=== PATIENT | female | born 1935 | race Caucasian/White ===

== ENCOUNTER → 2023-11-01 23:59 | Outpatient (BNV) | payer MEDICARE, SELFPAY ==
--- NOTE | 2023-11-01 11:24 | MHC.OFFVIS ---
Intake Intake Visit Reasons: Remote HF Monitoring- [employer] Allergies aspirin Allergy (Intermediate, Verified 09/01/23 11:00) Hives clindamycin Allergy (Intermediate, Verified 09/01/23 11:00) Diarrhea dipyridamole Allergy (Intermediate, Verified 09/01/23 11:00) Diarrhea doxycycline Allergy (Intermediate, Verified 09/01/23 11:00) Diarrhea enalapril Allergy (Intermediate, Verified 09/01/23 11:00) dry cough erythromycin base Allergy (Intermediate, Verified 09/01/23 11:00) Nausea, puffy face lansoprazole [Prevacid] Allergy (Intermediate, Verified 09/01/23 11:00) pruritus metronidazole Allergy (Intermediate, Verified 09/01/23 11:00) Diarrhea Penicillins [PENICILLINS] Allergy (Intermediate, Verified 09/01/23 11:00) hives Sulfa (Sulfonamide Antibiotics) [SULFA (SULFONAMIDE ANTIBIOTICS)] Allergy (Intermediate, Verified 09/01/23 11:00) Hives ticlopidine [TICLOPIDINE] Allergy (Intermediate, Verified 09/01/23 11:00) hives tramadol [TRAMADOL] Allergy (Intermediate, Verified 09/01/23 11:00) HIVES loratadine [LORATADINE] Allergy (Unknown, Verified 09/01/23 11:00) UNKNOWN levofloxacin Adverse Reaction (Intermediate, Verified 09/01/23 11:00) Diarrhea lisinopril [Zestril] Adverse Reaction (Intermediate, Verified 09/01/23 11:00) dry cough, chest pressure PFS Medical History Joint pain Hand weakness Neuropathy Medicare annual wellness visit, initial Biventricular cardiac pacemaker in situ History of pacemaker Cardiac pacemaker in situ Heart failure with reduced ejection fraction Cardiomyopathy Hearing loss Osteoporosis Glaucoma GERD (gastroesophageal reflux disease) Paroxysmal atrial fibrillation Essential hypertension Pure hypercholesterolemia Surgical History Trigger finger, right middle finger History of removal of cyst History of bone graft Enchondroma of humerus History of basal cell carcinoma (BCC) excision History of lumbar laminectomy History of total ankle replacement History of cataract surgery History of breast biopsy S/P HAILEY (total abdominal hysterectomy) History of ankle surgery History of cholecystectomy History of appendectomy History of tonsillectomy Family History Father Myocardial infarction Mother No problems noted. Paternal Aunt Colon cancer Breast cancer Sister Myocardial infarction Social History Housing: Apartment Alcohol intake: never Patient Tobacco Use Status: Never used Tobacco e-Cigarette/Vaping Use: Never Used Second Hand Smoke Exposure: No service: No Current occupational status: retired Cognitive needs: Yes Hearing needs: Yes Vision needs: Yes Office Procedures Cardiac Device Check Cardiac Device Check Details: Remote heart failure report generated 11/01/2023. Heart failure parameters are stable [id number] Cardiac Device Interrogation, cardio physiologic monitor Procedure code (CPT) selection complete Assessment & Plan Assessment & Plan (1) Biventricular cardiac pacemaker in situ: Code(s): Z95.0 - Presence of cardiac pacemaker Plan See above Coding Level of Care Code Procedure Only Diagnoses Biventricular cardiac pacemaker in situ Z95.0 CPT Codes Cardiac Device Check - Cardiac Device 15: [id number] Cardiac Device Interrogation, cardio physiologic monitor ([id number])
== END ==
PROVIDERS: PCP Internal Medicine; Visit Provider Internal Medicine Cardiovascular Disease
DX: I50.20 Unspecified systolic (congestive) heart failure (principal); Z95.0 Presence of cardiac pacemaker
CPT/HCPCS: 93297

== ENCOUNTER 2023-11-10 11:02 | Outpatient (REF) | payer MEDICARE, SELFPAY ==
--- NOTE | ~2023-11-10 | CT_ITS ---
CT HEAD WITHOUT IV CONTRAST CT TEMPORAL BONES WITHOUT IV CONTRAST INDICATION: Disorders of the right acoustic nerve. COMPARISON: Head CT 07/27/2018. TECHNIQUE: Multidetector CT acquisitions of the head and temporal bones obtained without IV contrast. This CT examination was performed using dose optimization techniques as appropriate, variously including the following: *Automated exposure control *Adjustment of mA and/or kV according to patient size (this includes techniques or standardized protocols for targeted exams where dose is matched to indication/reason for exam; i.e. extremities or head) *Use of iterative reconstruction technique FINDINGS: CT TEMPORAL BONES: The right mastoid air cells and the right middle ear cavity are clear. The right ossicular chain is intact. There is no otospongiosis. The inner ear structures including the cochlea, vestibule, and semicircular canals are normal. Semicircular canals remain will cover with bone. The vestibular aqueduct is not enlarged. Right petrous apex is pneumatized and clear. Internal carotid artery remains well covered with bone and the sigmoid plate is intact. The left mastoid air cells and the left middle ear cavity are clear. The left ossicular chain is intact. There is no otospongiosis. Inner ear structures including the cochlea, vestibule, and semicircular canals are normal. Semicircular canals remain will cover with bone. The vestibular aqueduct is not enlarged. The left petrous apex is pneumatized and well aerated. The internal carotid artery remains well covered with bone and the sigmoid plate is intact. 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 There is no intracranial hemorrhage, hydrocephalus, extra-axial surface collection, midline shift, or other herniation pattern. Hernandez to white matter differentiation is diffusely maintained without evidence of an evolved acute territorial infarct. The basilar cisterns are preserved. No significant soft tissue abnormality. No acute osseous abnormality. Heterogeneous density near complete opacification of the left sphenoid sinus including portions of the left sphenoid sinus pneumatized into the left sphenoid wing and basisphenoid of the clivus. The heterogeneity within the sinuses unusual and an underlying mass lesion cannot be excluded. No bony erosive changes. Advanced degenerative changes involving the atlantodental interval. CT/CT internal auditory canals BI IMPRESSION: - Heterogeneous density near complete opacification of the left sphenoid sinus including portions of the left sphenoid sinus pneumatized into the left sphenoid wing and basisphenoid of the clivus. The heterogeneity within the sinuses unusual and an underlying mass lesion cannot be excluded. No bony erosive changes. Findings have progressed when compared to the prior head CT dated 07/27/2018. 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 - Unremarkable CT of the temporal bones.
== END 2023-11-10 11:03 | disposition home or self-care (01) ==
LOC: HO.CT 11:02
PROVIDERS: Visit Provider Otolaryngology
DX: H93.3X1 Disorders of right acoustic nerve (principal)
CPT/HCPCS: 70450; 70480

== ENCOUNTER 2023-11-16 12:20 | Outpatient (REF) | payer MEDICARE, SELFPAY ==
[2023-11-16 12:42] LABS: MANUAL DIFF FLAG NO
[2023-11-16 13:34] LABS: Appearance Urine Clear; Color Urine Yellow; Glucose Urine UA Negative (Negative); Leukocyte Esterase Urine Negative (Negative); Nitrite Urine Negative (Negative); PH 6.5 (5.0-9.0); Specific Gravity - Urine 1.015 (1.005-1.025); Urine Blood Negative (Negative); Urine Ketones Negative (Negative); Urine Protein Negative (Neg-Trace)
[2023-11-16 13:38] LABS: Basophils Percent Auto 0.4 % (0-2); Eosinophils Absolute Auto 0.2 X10*3/uL (0.0-0.4); Eosinophils Percent Auto 2.6 % (0-4); Hematocrit 42.8 % (37.0-47.0); Imm Gran Abs Auto 0.02 X10*3/uL (0.00-0.03); Imm Gran Pct Auto 0.4 % (0.0-0.4); Lymphocytes Absolute Auto 1.5 X10*3/uL (1.2-4.9); Lymphocytes Percent Auto 26.4 % (20-40); Mean Corpuscular HGB Conc 32.7 g/dl (31.0-35.0); Mean Corpuscular Hemoglobin 30.8 pg (27.0-33.0); Mean Corpuscular Volume 94.1 fL (80.0-98.0); Mean Platelet Volume 10.7 fL (9.4-12.3); Monocytes Absolute Auto 0.5 X10*3/uL (0.1-1.2); Monocytes Percent Auto 8.8 % (2-11); Neutrophils Absolute Auto 3.5 x10*3/uL (2.0-8.3); Neutrophils Percent Auto 61.4 % (45-73); Platelet Count 161 X10*3/uL (160-400); Red Blood Count 4.55 X10*6/uL (4.20-5.50); Red Cell Distribution Width 13.7 % (11.0-16.0); White Blood Count 5.7 X10*3/uL (4.8-10.8)
[2023-11-16 13:48] LABS: Estimated Average Glucose 105 mg/dL; Hemoglobin A1c % 5.3 % (<6.0)
[2023-11-16 14:06] LABS: Iron 87 mcg/dL (30-160); Percent Iron Saturation 31 % (15-50); Total Iron Binding Capacity 280 mcg/dL (228-428); Unsaturated Iron Binding 193 ug/dL
[2023-11-20 10:54] LABS: VITAMIN D (1,25 OH) D3 29 pg/mL; Vit D (1,25-Dihydroxy) Total 29 pg/mL (18-72); Vitamin D (1,25 OH) D2 <8 pg/mL
== END 2023-11-16 12:21 | disposition home or self-care (01) ==
LOC: HO.LAB 12:20
PROVIDERS: PCP Internal Medicine; Visit Provider Internal Medicine Nephrology
DX: I13.0 Hypertensive heart and chronic kidney disease with heart failure and stage 1 through stage 4 chronic kidney disease, or unspecified chronic kidney disease (principal); N18.32 Chronic kidney disease, stage 3b; I50.9 Heart failure, unspecified; N25.0 Renal osteodystrophy
CPT/HCPCS: 36415; 81003; 82652; 83036; 83540; 85025; 87086

== ENCOUNTER 2023-12-07 10:47 | Outpatient (AMB) | payer MEDICARE, SELFPAY ==
[2023-12-07 10:51] VITALS: BP 108/64; PULSE 70; TEMP 35.9; O2SAT 96; BMI 28.0
--- NOTE | 2023-12-07 10:51 | MHC.OFFVIS ---
Intake Vital Signs 12/07/23 10:51 Height 5 ft 2.52 in Weight 155 lb 6.814 oz BMI 28.0 BP 108/64 Blood Pressure Location Rt brachial Position Sitting Pulse 70 Pulse Source Pulse Oximeter Temp 96.6 F L Temp Source Skin Pulse Oximetry (%) 96 Oxygen Delivery Method Room Air Intake Visit Reasons: Joint Pain Intake Note: New pt presents today for consult. 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 Accompanied by: Self / Same As Patient Allergies aspirin Allergy (Intermediate, Verified 12/07/23 10:56) Hives clindamycin Allergy (Intermediate, Verified 12/07/23 10:56) Diarrhea dipyridamole Allergy (Intermediate, Verified 12/07/23 10:56) Diarrhea doxycycline Allergy (Intermediate, Verified 12/07/23 10:56) Diarrhea enalapril Allergy (Intermediate, Verified 12/07/23 10:56) dry cough erythromycin base Allergy (Intermediate, Verified 12/07/23 10:56) Nausea, puffy face lansoprazole [Prevacid] Allergy (Intermediate, Verified 12/07/23 10:56) pruritus metronidazole Allergy (Intermediate, Verified 12/07/23 10:56) Diarrhea Penicillins [PENICILLINS] Allergy (Intermediate, Verified 12/07/23 10:56) hives Sulfa (Sulfonamide Antibiotics) [SULFA (SULFONAMIDE ANTIBIOTICS)] Allergy (Intermediate, Verified 12/07/23 10:56) Hives ticlopidine [TICLOPIDINE] Allergy (Intermediate, Verified 12/07/23 10:56) hives tramadol [TRAMADOL] Allergy (Intermediate, Verified 12/07/23 10:56) HIVES loratadine [LORATADINE] Allergy (Unknown, Verified 12/07/23 10:56) UNKNOWN levofloxacin Adverse Reaction (Intermediate, Verified 12/07/23 10:56) Diarrhea lisinopril [Zestril] Adverse Reaction (Intermediate, Verified 12/07/23 10:56) dry cough, chest pressure Medication List - Last Reconciled 12/07/23 by Celine Beaver MD acetaminophen ER 650 mg PO .AFTER LUNCH alendronate 70 mg PO QWEEK amiodarone 100 mg (1/2 x 200 mg) PO DAILY 90 days apixaban (Eliquis) 5 mg PO BID 90 days atenolol 50 mg PO DAILY calcium carbonate-vit D3-min 600 mg calcium- 400 unit 1 tab PO BID dicyclomine 20 mg PO TID 90 days fexofenadine (Eneida Allergy) 180 mg PO DAILY PRN latanoprost 0.005% drps ophthalmic (eye) levocetirizine 5 mg PO DAILY losartan 50 mg PO DAILY magnesium oxide 400 mg PO DAILY rosuvastatin 10 mg PO DAILY 90 days sacubitril-valsartan 24-26 mg (Entresto) 1 tab PO BID spironolactone 25 mg PO DAILY 90 days triamcinolone acetonide (Nasacort) 1 spray intranasal DAILY triamcinolone acetonide 0.1% appl topical BID HPI HPI Comments History of Present Illness Details This is an 88-year-old female with generalized osteoarthritis and osteoporosis who presents for evaluation. She states that she has had arthritis since she was in her 30s. She has known arthritis in her knees, spine, hands. She states that she gets intermittent joint pain in her knees, lower back hands. She stated that her left ankle was replaced in 2019 and has been doing well ever since. Patient has known CHF, CKD, AFib on Eliquis and NSAIDs are contraindicated. She takes Tylenol daily and rubs topical creams on affected joints when needed. She would take Celebrex about once a month at the most. She walks with a walker. She also has known osteoporosis on alendronate. She states that today she does not have any specific complaints. She is doing fairly well overall. [facility] Medical History Joint pain Hand weakness Neuropathy Medicare annual wellness visit, initial Biventricular cardiac pacemaker in situ History of pacemaker Cardiac pacemaker in situ Heart failure with reduced ejection fraction Cardiomyopathy Hearing loss Osteoporosis Glaucoma GERD (gastroesophageal reflux disease) Paroxysmal atrial fibrillation Essential hypertension Pure hypercholesterolemia Surgical History Trigger finger, right middle finger History of removal of cyst History of bone graft Enchondroma of humerus History of basal cell carcinoma (BCC) excision History of lumbar laminectomy History of total ankle replacement History of cataract surgery History of breast biopsy S/P HAILEY (total abdominal hysterectomy) History of ankle surgery History of cholecystectomy History of appendectomy History of tonsillectomy Family History Father Myocardial infarction Mother No problems noted. Paternal Aunt Colon cancer Breast cancer Sister Myocardial infarction Social History Housing: Apartment Alcohol intake: never Patient Tobacco Use Status: Never used Tobacco e-Cigarette/Vaping Use: Never Used Second Hand Smoke Exposure: No service: No Current occupational status: retired Cognitive needs: Yes Hearing needs: Yes Vision needs: Yes Review of Systems Const Reports fatigue ENT Details: Loss of hearing Reports dizziness and Reports dry mouth Resp Reports cough GI Reports heartburn Musc Reports back pain, Reports arthralgias, Reports loss of height and Reports stiffness Skin/Breast Reports unusual bruising Neuro Reports dizziness and Reports memory loss Psych Reports memory loss Endo Reports fatigue Physical Exam Vital Signs: Last Vital Signs Temp 96.6 F L 12/07/23 10:51 Pulse 70 12/07/23 10:51 BP 108/64 12/07/23 10:51 Pulse Ox 96 12/07/23 10:51 Oxygen Delivery Method Room Air 12/07/23 10:51 BMI result Body Mass Index 28.0 Const General: cooperative, healthy appearing and comfortable Nutritional Appearance: overweight Orientation/consciousness: patient oriented x3 Limitations: ambulation with walker HEENT Head: Yes normocephalic and Yes atraumatic Resp Effort & Inspection: normal respiratory effort and able to speak in complete sentences Skin General skin exam: dry skin Neuro General: patient oriented x3 Extrem Other: Osteoarthritic changes of both hands with no active synovitis Normal range of motion of both elbows and shoulders without pain Right knee pain with full extension Assessment & Plan Assessment & Plan (1) Generalized osteoarthritis of multiple sites: Code(s): M15.9 - Polyosteoarthritis, unspecified Plan: This is an 88-year-old female with generalized osteoarthritis. Her symptoms are fairly well controlled with Tylenol 650 mg once daily, topical creams and Celebrex less than once a month. NSAIDs are contraindicated due her history of CHF, AFib on Eliquis and CKD. We discussed the nature of osteoarthritis. I advised patient that she can use Tylenol up to 4 times a day. Can try using turmeric Follow-up as needed (2) Osteoporosis: Code(s): M81.0 - Age-related osteoporosis without current pathological fracture Qualifiers: Osteoporosis type: age-related Presence of current pathological fracture: without current pathological fracture Qualified Code(s): M81.0 - Age-related osteoporosis without current pathological fracture Plan: Discussed osteoporosis. She is on alendronate. Advised patient to avoid falls. Discussed weight-bearing exercise. Follow-up with PCP Plan I spent 32 minutes reviewing patient's chart, evaluating patient, counseling patient and documenting in the chart Coding Level of Care Code New Pt Level 3 (67853) Diagnoses Generalized osteoarthritis of multiple sites M15.9 Age-related osteoporosis without current pathological fracture M81.0 Osteoporosis type: age-related Presence of current pathological fracture: without current pathological fracture
== END 2023-12-07 11:29 | disposition home or self-care (01) ==
PROVIDERS: PCP Internal Medicine; Visit Provider Student in an Organized Health Care Education/Training Program
DX: M15.9 Polyosteoarthritis, unspecified (principal); M81.0 Age-related osteoporosis without current pathological fracture
CPT/HCPCS: 99203

== ENCOUNTER → 2023-12-07 10:47 | Outpatient (BNVA) | payer MEDICARE, SELFPAY | PROVIDERS: PCP Internal Medicine; Visit Provider Student in an Organized Health Care Education/Training Program | DX: M15.9 Polyosteoarthritis, unspecified (principal); M81.0 Age-related osteoporosis without current pathological fracture | CPT/HCPCS: 99202 ==

== ENCOUNTER → 2024-01-01 23:59 | Outpatient (BNV) | payer MEDICARE, SELFPAY ==
--- NOTE | 2024-01-03 12:35 | MHC.OFFVIS ---
Intake Intake Visit Reasons: Remote HF Monitoring- [employer] Allergies aspirin Allergy (Intermediate, Verified 12/07/23 10:56) Hives clindamycin Allergy (Intermediate, Verified 12/07/23 10:56) Diarrhea dipyridamole Allergy (Intermediate, Verified 12/07/23 10:56) Diarrhea doxycycline Allergy (Intermediate, Verified 12/07/23 10:56) Diarrhea enalapril Allergy (Intermediate, Verified 12/07/23 10:56) dry cough erythromycin base Allergy (Intermediate, Verified 12/07/23 10:56) Nausea, puffy face lansoprazole [Prevacid] Allergy (Intermediate, Verified 12/07/23 10:56) pruritus metronidazole Allergy (Intermediate, Verified 12/07/23 10:56) Diarrhea Penicillins [PENICILLINS] Allergy (Intermediate, Verified 12/07/23 10:56) hives Sulfa (Sulfonamide Antibiotics) [SULFA (SULFONAMIDE ANTIBIOTICS)] Allergy (Intermediate, Verified 12/07/23 10:56) Hives ticlopidine [TICLOPIDINE] Allergy (Intermediate, Verified 12/07/23 10:56) hives tramadol [TRAMADOL] Allergy (Intermediate, Verified 12/07/23 10:56) HIVES loratadine [LORATADINE] Allergy (Unknown, Verified 12/07/23 10:56) UNKNOWN levofloxacin Adverse Reaction (Intermediate, Verified 12/07/23 10:56) Diarrhea lisinopril [Zestril] Adverse Reaction (Intermediate, Verified 12/07/23 10:56) dry cough, chest pressure PFS Medical History Joint pain Hand weakness Neuropathy Medicare annual wellness visit, initial Biventricular cardiac pacemaker in situ History of pacemaker Cardiac pacemaker in situ Heart failure with reduced ejection fraction Cardiomyopathy Hearing loss Osteoporosis Glaucoma GERD (gastroesophageal reflux disease) Paroxysmal atrial fibrillation Essential hypertension Pure hypercholesterolemia Surgical History Trigger finger, right middle finger History of removal of cyst History of bone graft Enchondroma of humerus History of basal cell carcinoma (BCC) excision History of lumbar laminectomy History of total ankle replacement History of cataract surgery History of breast biopsy S/P HAILEY (total abdominal hysterectomy) History of ankle surgery History of cholecystectomy History of appendectomy History of tonsillectomy Family History Father Myocardial infarction Mother No problems noted. Paternal Aunt Colon cancer Breast cancer Sister Myocardial infarction Social History Housing: Apartment Alcohol intake: never Patient Tobacco Use Status: Never used Tobacco e-Cigarette/Vaping Use: Never Used Second Hand Smoke Exposure: No service: No Current occupational status: retired Cognitive needs: Yes Hearing needs: Yes Vision needs: Yes Office Procedures Cardiac Device Check Cardiac Device Check Details: Remote heart failure report generated 01/01/2024. OptiVol is at upper limits of normal. Will follow-up with patient clinically [id number] Cardiac Device Interrogation, cardio physiologic monitor Procedure code (CPT) selection complete Assessment & Plan Assessment & Plan (1) Biventricular cardiac pacemaker in situ: Code(s): Z95.0 - Presence of cardiac pacemaker Plan: See above Coding Level of Care Code Procedure Only Diagnoses Biventricular cardiac pacemaker in situ Z95.0 CPT Codes Cardiac Device Check - Cardiac Device 15: [id number] Cardiac Device Interrogation, cardio physiologic monitor ([id number])
== END ==
PROVIDERS: PCP Internal Medicine; Visit Provider Internal Medicine Cardiovascular Disease
DX: I50.20 Unspecified systolic (congestive) heart failure (principal); Z95.0 Presence of cardiac pacemaker
CPT/HCPCS: 93297

== ENCOUNTER → 2024-01-01 23:59 | Outpatient (BNV) | payer MEDICARE, SELFPAY ==
--- NOTE | 2024-01-03 12:34 | A.OFFVIS_ITS ---
Intake Intake Visit Reasons: Remote Device Check- [employer] Allergies aspirin Allergy (Intermediate, Verified 12/07/23 10:56) Hives clindamycin Allergy (Intermediate, Verified 12/07/23 10:56) Diarrhea dipyridamole Allergy (Intermediate, Verified 12/07/23 10:56) Diarrhea doxycycline Allergy (Intermediate, Verified 12/07/23 10:56) Diarrhea enalapril Allergy (Intermediate, Verified 12/07/23 10:56) dry cough erythromycin base Allergy (Intermediate, Verified 12/07/23 10:56) Nausea, puffy face lansoprazole [Prevacid] Allergy (Intermediate, Verified 12/07/23 10:56) pruritus metronidazole Allergy (Intermediate, Verified 12/07/23 10:56) Diarrhea Penicillins [PENICILLINS] Allergy (Intermediate, Verified 12/07/23 10:56) hives Sulfa (Sulfonamide Antibiotics) [SULFA (SULFONAMIDE ANTIBIOTICS)] Allergy (Intermediate, Verified 12/07/23 10:56) Hives ticlopidine [TICLOPIDINE] Allergy (Intermediate, Verified 12/07/23 10:56) hives tramadol [TRAMADOL] Allergy (Intermediate, Verified 12/07/23 10:56) HIVES loratadine [LORATADINE] Allergy (Unknown, Verified 12/07/23 10:56) UNKNOWN levofloxacin Adverse Reaction (Intermediate, Verified 12/07/23 10:56) Diarrhea lisinopril [Zestril] Adverse Reaction (Intermediate, Verified 12/07/23 10:56) dry cough, chest pressure [facility] Medical History Joint pain Hand weakness Neuropathy Medicare annual wellness visit, initial Biventricular cardiac pacemaker in situ History of pacemaker Cardiac pacemaker in situ Heart failure with reduced ejection fraction Cardiomyopathy Hearing loss Osteoporosis Glaucoma GERD (gastroesophageal reflux disease) Paroxysmal atrial fibrillation Essential hypertension Pure hypercholesterolemia Surgical History Trigger finger, right middle finger History of removal of cyst History of bone graft Enchondroma of humerus History of basal cell carcinoma (BCC) excision History of lumbar laminectomy History of total ankle replacement History of cataract surgery History of breast biopsy S/P HAILEY (total abdominal hysterectomy) History of ankle surgery History of cholecystectomy History of appendectomy History of tonsillectomy Family History Father Myocardial infarction Mother No problems noted. Paternal Aunt Colon cancer Breast cancer Sister Myocardial infarction Social History Housing: Apartment Alcohol intake: never Patient Tobacco Use Status: Never used Tobacco e-Cigarette/Vaping Use: Never Used Second Hand Smoke Exposure: No service: No Current occupational status: retired Cognitive needs: Yes Hearing needs: Yes Vision needs: Yes Office Procedures Cardiac Device Check Cardiac Device Check Details: Remote pacemaker report generated 01/01/2024. Pacemaker function is adequate. Biventricular pacing 99.4% of the time. No episodes of atrial fibrillation noted [id number] Cardiac Device Interrogation, pacemaker Procedure code (CPT) selection complete Assessment & Plan Assessment & Plan (1) Biventricular cardiac pacemaker in situ: Code(s): Z95.0 - Presence of cardiac pacemaker Plan: See above Coding Level of Care Code Procedure Only Diagnoses Biventricular cardiac pacemaker in situ Z95.0 CPT Codes Cardiac Device Check - Cardiac Device 12: [id number] Cardiac Device Interrogation, pacemaker ([id number])
== END ==
PROVIDERS: PCP Internal Medicine; Visit Provider Internal Medicine Cardiovascular Disease
DX: I48.0 Paroxysmal atrial fibrillation (principal); Z95.0 Presence of cardiac pacemaker
CPT/HCPCS: 93294

== ENCOUNTER 2024-01-20 12:37 | Outpatient (REF) | payer MEDICARE, SELFPAY ==
[2024-01-20 13:43] LABS: Alanine Aminotransferase 16 U/L (0-31); Albumin Level 4.3 g/dL (3.5-5.0); Alkaline Phosphatase 74 U/L (39-117); Anion Gap 13 (12-20); Aspartate Amino Transferase 23 U/L (5-31); Bilirubin Total 0.7 mg/dL (0.0-1.0); Blood Urea Nitrogen 14 mg/dL (9-16); Carbon Dioxide 30 mmol/L (22-29); Chloride 107 mmol/L (96-108); Cholesterol 133 mg/dL (<200); Estimated Glomerular Filt Rate 45; Glucose Fasting 89 mg/dL (60-99); HDL Cholesterol 48 mg/dL (>40); LDL Cholesterol Calculated 70 mg/dL (<100); Potassium 4.5 mmol/L (3.3-5.1); Sodium 145 mmol/L (135-145); Total Protein 7.2 g/dL (6.5-8.0); Triglycerides 77 mg/dL (<150)
[2024-01-20 14:01] LABS: Vitamin D 25-OH Total 62.5 ng/mL (>30)
[2024-01-24 15:08] LABS: Cyclic Citrullinated Peptide <16 UNITS
[2024-01-25 17:38] LABS: NT-proBNP 1012 pg/mL (<450)
[2024-01-27 12:24] LABS: Anti Nuclear Antibody Pattern Nuclear, Homogeneous; Anti Nuclear Antibody Screen POSITIVE (NEGATIVE)
== END 2024-01-20 12:38 | disposition home or self-care (01) ==
LOC: HO.LAB 12:37
PROVIDERS: PCP Internal Medicine; Visit Provider Internal Medicine
DX: M25.50 Pain in unspecified joint (principal); E55.9 Vitamin D deficiency, unspecified; E78.5 Hyperlipidemia, unspecified; I50.20 Unspecified systolic (congestive) heart failure
CPT/HCPCS: 36415; 80053; 80061; 82306; 83880; 86038; 86039; 86200

== ENCOUNTER 2024-01-27 13:26 | Outpatient (AMB) | payer MEDICARE, SELFPAY ==
--- NOTE | 2024-01-27 13:30 | A.OFFPC_ITS ---
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 Required: No Accompanied by: Self / Same As Patient Allergies aspirin Allergy (Intermediate, Verified 01/27/24 13:47) Hives clindamycin Allergy (Intermediate, Verified 01/27/24 13:47) Diarrhea dipyridamole Allergy (Intermediate, Verified 01/27/24 13:47) Diarrhea doxycycline Allergy (Intermediate, Verified 01/27/24 13:47) Diarrhea enalapril Allergy (Intermediate, Verified 01/27/24 13:47) dry cough erythromycin base Allergy (Intermediate, Verified 01/27/24 13:47) Nausea, puffy face lansoprazole [Prevacid] Allergy (Intermediate, Verified 01/27/24 13:47) pruritus metronidazole Allergy (Intermediate, Verified 01/27/24 13:47) Diarrhea Penicillins [PENICILLINS] Allergy (Intermediate, Verified 01/27/24 13:47) hives Sulfa (Sulfonamide Antibiotics) [SULFA (SULFONAMIDE ANTIBIOTICS)] Allergy (Intermediate, Verified 01/27/24 13:47) Hives ticlopidine [TICLOPIDINE] Allergy (Intermediate, Verified 01/27/24 13:47) hives tramadol [TRAMADOL] Allergy (Intermediate, Verified 01/27/24 13:47) HIVES loratadine [LORATADINE] Allergy (Unknown, Verified 01/27/24 13:47) UNKNOWN levofloxacin Adverse Reaction (Intermediate, Verified 01/27/24 13:47) Diarrhea lisinopril [Zestril] Adverse Reaction (Intermediate, Verified 01/27/24 13:47) dry cough, chest pressure Medication List - Last Reconciled 01/27/24 by Keeley Curtis MD acetaminophen ER 650 mg PO .AFTER LUNCH alendronate 70 mg PO QWEEK amiodarone 100 mg (1/2 x 200 mg) PO DAILY 90 days apixaban (Eliquis) 5 mg PO BID 90 days atenolol 50 mg PO DAILY 90 days calcium carbonate-vit D3-min 600 mg calcium- 400 unit 1 tab PO BID dicyclomine 20 mg PO TID 90 days fexofenadine (Eneida Allergy) 180 mg PO DAILY PRN latanoprost 0.005% drps ophthalmic (eye) levocetirizine 5 mg PO DAILY losartan 50 mg PO DAILY magnesium oxide 400 mg PO DAILY rosuvastatin 10 mg PO DAILY 90 days sacubitril-valsartan 24-26 mg (Entresto) 1 tab PO BID 90 days spironolactone 25 mg PO DAILY 90 days triamcinolone acetonide (Nasacort) 1 spray intranasal DAILY triamcinolone acetonide 0.1% appl topical BID Tobacco use date assessed: 01/27/24 Fall risk assessment: 1 Fall in past year Last assessed Fall Risk: 01/27/24 Dental Screening Dental Screen Date: 01/27/24 Did you have a dental visit in the last 12 months?: Yes Did you have a dental problem in the last 6 months where you did not have access to dental care?: No Was dental information given to patient?: Patient has dentist HPI HPI Comments History of Present Illness Details This is an 88-year-old female with hypertension, chronic systolic congestive heart failure, pure hypercholesterolemia and paroxysmal atrial fibrillation that comes today for follow-up on her conditions. Blood pressure stable. Cholesterol well controlled with statins. Her last ejection fraction in December 2022 was 25-30% and her NT proBNP has increase. She is currently euvolemic and complains of dyspnea on exertion but she can not recall if she has been having it for the past year. She has not gain 5 lb in a week. She follows with cardiology. She has a pacemake and cardiology follows a closely. Has not received Entresto yet and is currently taking losartan instead. Labs were discussed. 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 Unfortunately she is allergic to aspirin for secondary prophylaxis. Walks with a walker for gait stability. No chest pain or shortness of breath. [facility] Medical History Joint pain Hand weakness Neuropathy Medicare annual wellness visit, initial Biventricular cardiac pacemaker in situ History of pacemaker Cardiac pacemaker in situ Heart failure with reduced ejection fraction Cardiomyopathy Hearing loss Osteoporosis Glaucoma GERD (gastroesophageal reflux disease) Paroxysmal atrial fibrillation Essential hypertension Pure hypercholesterolemia Surgical History Trigger finger, right middle finger History of removal of cyst History of bone graft Enchondroma of humerus History of basal cell carcinoma (BCC) excision History of lumbar laminectomy History of total ankle replacement History of cataract surgery History of breast biopsy S/P HAILEY (total abdominal hysterectomy) History of ankle surgery History of cholecystectomy History of appendectomy History of tonsillectomy Family History Father Myocardial infarction Mother No problems noted. Paternal Aunt Colon cancer Breast cancer Sister Myocardial infarction Social History Housing: Apartment Alcohol intake: never Patient Tobacco Use Status: Never used Tobacco e-Cigarette/Vaping Use: Never Used Second Hand Smoke Exposure: No service: No Current occupational status: retired Cognitive needs: Yes Hearing needs: Yes Vision needs: Yes Questionnaire PHQ-9 Over the last 2 weeks, how often have you been bothered by any of the following problems? 1. Little interest or pleasure in doing things: not at all 2. Feeling down, depressed, or hopeless: not at all 3. Trouble falling or staying asleep, or sleeping too much: not at all 4. Feeling tired or having little energy: not at all 5. Poor appetite or overeating: not at all 6. Feeling bad about yourself - or that you are a failure or have let yourself or your family down: not at all 7. Trouble concentrating on things, such as reading the newspaper or watching television: not at all 8. Moving or speaking so slowly that other people could have noticed. Or the opposite - being so fidgety or restless that you have been moving around a lot more than usual: not at all 9. Thoughts that you would be better off or of hurting yourself in some way: not at all Total score: 0 Depression Screening Interpretation: Negative Depression Screening Done: Yes 93521 - PHQ-9 Billing: Yes Source: Developed by Drs. Sukhdeep Borrero, Margo Manriquez, Arron Romero and colleagues, with an educational mario from [employer]. Thrive Questionnaire Date Thrive assessed: 01/27/24 I am a: Patient What is your living situation today?: I have a steady place to live Within the past 12 months, did the food you bought not last and you didn't have the money to get more?: Never true Within the past 12 months, did you worry whether your food would run out before you got money to buy more?: Never true Do you have trouble paying for medicines?: No Do you have trouble getting transportation to medical appointments?: No Do you have trouble paying your heating and electricity bill?: No Do you have trouble taking care of your child, family member or friend?: No Do you have trouble with day-to-day activities such as bathing, preparing meals, shopping, managing finances, etc.?: No Are you currently unemployed and looking for a job?: No Are you interested in more education?: No Please select the resources that you would like help with: None Currently or been in a relationship where the following occur: no concerns reported THRIVE Score: 0 AUDIT C Alcohol Use Questionnaire (AUDIT-C) 1. How often do you have a drink containing alcohol?: Never Total Score: 0 VALERIA-7 AMB Questionnaire VALERIA-7 Date VALERIA - 7 assessed: 01/27/24 Feeling nervous, anxious, or on edge: 0 = Not at all Not being able to stop or control worryin = Not at all Worrying too much about different things: 0 = Not at all Trouble relaxin = Not at all Being so restless that it is hard to sit still: 0 = Not at all Becoming easily annoyed or irritable: 0 = Not at all Feeling afraid as if something awful might happen: 0 = Not at all Total VALERIA-7 score (0-4 normal; 5-9 mild; 10-14 moderate; 15-21 severe): 0 Source: Developed by Drs. Sukhdeep Borrero, Arron Kim and colleagues, with an educational mario from [employer]. VALERIA-7 Assessment Billing VALERIA-7 Assessment Tool: VALERIA-7 Assessment 60489 Review of Systems Const All systems reviewed & are unremarkable except as noted in HPI and below Eyes Reports no additional complaints, Denies change in vision and Denies other visual disturbances Card Denies chest pain at rest, Denies chest pain with activity, Denies edema, Denies irregular heart rhythm, Denies claudication, Denies dyspnea, Denies dyspnea on exertion, Denies orthopnea, Denies paroxysmal nocturnal dyspnea and Denies slow heart rate Resp Denies cough, Denies dyspnea and Denies dyspnea on exertion GI Denies abdominal pain, Denies change in bowel habits, Denies excessive flatus, Denies nausea and Denies vomiting Denies urinary incontinence, Denies urinary hesitancy and Denies urinary urgency Musc Denies abnormal gait, Denies atrophy, Denies deformity and Denies limited range of motion Skin/Breast Denies bleeding lesions, Denies changing lesions and Denies rash Neuro Denies abnormal gait and Denies lack of coordination Physical exam (Primary Care) Vital Signs: Last Vital Signs Pulse 76 01/27/24 13:32 BP 108/62 01/27/24 13:32 Pulse Ox 96 01/27/24 13:32 Oxygen Delivery Method Room Air 01/27/24 13:32 BMI result Body Mass Index 27.2 Tobacco/Smoking Status: Tobacco use Status Tobacco use date assessed 01/27/24 01/27/24 13:41 Patient Tobacco Use Status Never used Tobacco 01/27/24 13:36 Tobacco use type 08/20/22 15:12 e-Cigarette/Vaping Use Never Used 01/27/24 13:36 PHQ-9: PHQ-9 Score PHQ-9: Total score 0 01/27/24 14:35 Depression Screening Interpretation: Negative Thrive Assessment: Date of Thrive Assessment Date Thrive assessed 01/27/24 01/27/24 13:36 Currently or been in a relationship where the following occur: no concerns reported Eyes General: appearance normal, both eyes and all related structures Eyelids: Yes eyelids normal Conjunctivae: conjunctivae normal Neck Neck: Yes normal visual inspection and Yes supple Resp Effort & Inspection: normal respiratory effort Auscultation: clear to auscultation bilaterally Cardio Jugular venous distension: no JVD Rate: regular rate Rhythm: regular rhythm Heart sounds: S1 normal heart sound present and S2 normal heart sound present Extrem General: Yes full ROM Assessment and Plan Assessment & Plan (1) Heart failure with reduced ejection fraction: Code(s): I50.20 - Unspecified systolic (congestive) heart failure Plan: Continue spironolactone. Start Entresto when available and discontinue losartan. The goal is to not gain 5 lb in a week. Echocardiogram order to compare ejection fraction from last year. Follow-up with Cardiology. (2) Paroxysmal atrial fibrillation: Code(s): I48.0 - Paroxysmal atrial fibrillation Plan: Continue amiodarone and Eliquis. The goal is heart rate control. Follow-up with Cardiology which is monitoring pacemaker. (3) Essential hypertension: Code(s): I10 - Essential (primary) hypertension Plan: Start Entresto when available. Blood pressure goal is equal or less than 130/80. (4) Pure hypercholesterolemia: Code(s): E78.00 - Pure hypercholesterolemia, unspecified Plan: Continue statins. Orders: Orders CA echo transthoracic complete Today I50.20 - Unspecified systolic (congestive) heart failure NT-proBNP 4 Months I50.20 - Unspecified systolic (congestive) heart failure Lipid Panel 4 Months E78.5 - Hyperlipidemia, unspecified, I50.20 - Unspecified systolic (congestive) heart failure Comprehensive [place]. Panel Fast 4 Months I50.20 - Unspecified systolic (congestive) heart failure Coding Level of Care Code Est Pt Level 4 (32671) Diagnoses Heart failure with reduced ejection fraction I50.20 Paroxysmal atrial fibrillation I48.0 Essential hypertension I10 Pure hypercholesterolemia E78.00 Additional Codes VALERIA-7 Assessment Billing - VALERIA-7 Assessment Tool: VALERIA-7 Assessment 51234 ([id number]) Time Spent (min) 25
[2024-01-27 13:32] VITALS: BP 108/62; PULSE 76; O2SAT 96; BMI 27.2
[2024-01-27 15:42] VITALS: PULSE 83
== END 2024-01-27 14:19 | disposition home or self-care (01) ==
PROVIDERS: PCP Internal Medicine; Visit Provider Internal Medicine
DX: I11.0 Hypertensive heart disease with heart failure (principal); I50.20 Unspecified systolic (congestive) heart failure; I48.0 Paroxysmal atrial fibrillation; E78.00 Pure hypercholesterolemia, unspecified
CPT/HCPCS: 99214

== ENCOUNTER → 2024-02-01 23:59 | Outpatient (BNV) | payer MEDICARE, SELFPAY ==
--- NOTE | 2024-02-01 16:17 | MHC.OFFVIS ---
Intake Intake Visit Reasons: Remote HF Monitoring- [employer] Allergies aspirin Allergy (Intermediate, Verified 01/27/24 13:47) Hives clindamycin Allergy (Intermediate, Verified 01/27/24 13:47) Diarrhea dipyridamole Allergy (Intermediate, Verified 01/27/24 13:47) Diarrhea doxycycline Allergy (Intermediate, Verified 01/27/24 13:47) Diarrhea enalapril Allergy (Intermediate, Verified 01/27/24 13:47) dry cough erythromycin base Allergy (Intermediate, Verified 01/27/24 13:47) Nausea, puffy face lansoprazole [Prevacid] Allergy (Intermediate, Verified 01/27/24 13:47) pruritus metronidazole Allergy (Intermediate, Verified 01/27/24 13:47) Diarrhea Penicillins [PENICILLINS] Allergy (Intermediate, Verified 01/27/24 13:47) hives Sulfa (Sulfonamide Antibiotics) [SULFA (SULFONAMIDE ANTIBIOTICS)] Allergy (Intermediate, Verified 01/27/24 13:47) Hives ticlopidine [TICLOPIDINE] Allergy (Intermediate, Verified 01/27/24 13:47) hives tramadol [TRAMADOL] Allergy (Intermediate, Verified 01/27/24 13:47) HIVES loratadine [LORATADINE] Allergy (Unknown, Verified 01/27/24 13:47) UNKNOWN levofloxacin Adverse Reaction (Intermediate, Verified 01/27/24 13:47) Diarrhea lisinopril [Zestril] Adverse Reaction (Intermediate, Verified 01/27/24 13:47) dry cough, chest pressure PFSH Medical History Joint pain Hand weakness Neuropathy Medicare annual wellness visit, initial Biventricular cardiac pacemaker in situ History of pacemaker Cardiac pacemaker in situ Heart failure with reduced ejection fraction Cardiomyopathy Hearing loss Osteoporosis Glaucoma GERD (gastroesophageal reflux disease) Paroxysmal atrial fibrillation Essential hypertension Pure hypercholesterolemia Surgical History Trigger finger, right middle finger History of removal of cyst History of bone graft Enchondroma of humerus History of basal cell carcinoma (BCC) excision History of lumbar laminectomy History of total ankle replacement History of cataract surgery History of breast biopsy S/P HAILEY (total abdominal hysterectomy) History of ankle surgery History of cholecystectomy History of appendectomy History of tonsillectomy Family History Father Myocardial infarction Mother No problems noted. Paternal Aunt Colon cancer Breast cancer Sister Myocardial infarction Social History Housing: Apartment Alcohol intake: never Patient Tobacco Use Status: Never used Tobacco e-Cigarette/Vaping Use: Never Used Second Hand Smoke Exposure: No service: No Current occupational status: retired Cognitive needs: Yes Hearing needs: Yes Vision needs: Yes Office Procedures Cardiac Device Check Cardiac Device Check Details: Remote heart failure report generated 02/01/2024. Heart failure parameters are stable [id number] Cardiac Device Interrogation, cardio physiologic monitor Procedure code (CPT) selection complete Assessment & Plan Assessment & Plan (1) Biventricular cardiac pacemaker in situ: Code(s): Z95.0 - Presence of cardiac pacemaker Plan: See above Coding Level of Care Code Procedure Only Diagnoses Biventricular cardiac pacemaker in situ Z95.0 CPT Codes Cardiac Device Check - Cardiac Device 15: [id number] Cardiac Device Interrogation, cardio physiologic monitor ([id number])
== END ==
PROVIDERS: PCP Internal Medicine; Visit Provider Internal Medicine Cardiovascular Disease
DX: I50.20 Unspecified systolic (congestive) heart failure (principal); Z95.0 Presence of cardiac pacemaker
CPT/HCPCS: 93297

== ENCOUNTER → 2024-02-18 12:43 | Outpatient (REF) | payer MEDICARE, SELFPAY ==
--- NOTE | 2024-02-18 13:00 | CA_ITS ---
Transthoracic Echocardiogram Patient (Last, First, Middle): Mag Crow D Gender: Female Date of : 1935 Age: 88 Procedure Date: 02/18/2024 Procedure Type: Transthoracic Echocardiogram Location: OP Height: 160.02 cm Weight: 69.4 kg BSA: 1.73 m2 Heart Rate: 60 bpm BP: 95 / 65 mmHg Religious Activities Director: ROGELIO Referring MD: Keeley Curtis MD Symptoms: I50.20 - Unspecified systolic (congestive) heart failure Study Quality: Fair w/Contrast Conclusions: - Normal left ventricular cavity size. The left ventricular systolic function is moderately decreased. The visually estimated ejection fraction is between 30-35%. There is moderate global hypokinesis. - Normal right ventricular cavity size. There is mildly decreased right ventricular systolic function. There is a pacemaker wire seen in the right ventricle. Findings Procedure Information Contrast agent, definity, is being given per protocol without apparent complications. Left Ventricle Normal left ventricular cavity size. The left ventricular systolic function is moderately decreased. The visually estimated ejection fraction is between 30-35%. There is moderate global hypokinesis. There is paradoxical septal motion consistent with a right ventricular pacemaker. Diastolic function is indeterminate on the basis of available data. Right Ventricle Normal right ventricular cavity size. There is mildly decreased right ventricular systolic function. There is a pacemaker wire seen in the right ventricle. Atria The left atrium is normal in size. The right atrium is mildly dilated. A pacemaker wire is identified in the right atrium. Aortic Valve There is a normal trileaflet aortic valve. There is mild calcification of the aortic valve. There is no aortic valve stenosis. There is no aortic valve regurgitation. Mitral Valve The mitral valve appears normal. There is mild mitral valve regurgitation. There is no mitral valve stenosis. Pulmonic Valve The pulmonic valve is normal. There is trace pulmonic valve regurgitation. Tricuspid Valve Normal tricuspid valve structure. Tricuspid regurgitation envelope is inadequate for calculation of right ventricular systolic pressure. Normal right atrial pressure. There is no evidence of pulmonary hypertension. Great Vessels There is mild dilatation of the ascending aorta measuring 3.50 cm. Venous The inferior vena cava is normal in size and collapses greater than 50% with inspiration. Pericardium/Pleural There is no evidence of pericardial effusion. Prior Study Comparison No significant change compared to prior study dated: 12/25/2022. Measurements 2D Linear Measurements IVSd: 1.12 0.6-0.9/0.6-1.0 cm LVIDd: 4.16 3.9-5.3/4.2-5.9 cm LVIDd Index: 2.40 2.4-3.2/2.2-3.1 cm/m2 LVIDs: 2.95 2.0-3.6 cm LVPWd: 0.79 0.7-1.1 cm LA Diam: 3.90 2.7-3.8/3.0-4.0 cm LAIDs Index: 2.25 1.5-2.3 cm/m2 LV Mass: 157.26 67-162/88-224 g LV Mass Index: 90.90 43-95/49-115 g/m2 LVOT Diam: 2.10 3.0+(-)1.3 cm 2D Systolic Function EF 4C: 34.10 >55% EF 2C: 47.50 >55% EF BiP: 40.70 >55% Mitral Valve MV Pk E: 0.95 MV PK A: 0.27 MV Decel Time: 178.00 E/A: 3.50 E'Lateral: 7.94 E'Medial: 4.57 E/E' Med: 20.70 E/E' Lat: 11.90 PHT: 52.00 MVA PHT: 4.23 Decel [place]: 5.31 Aortic Valve AoV Pk Kwasi: 1.12 AoV Mn Kwasi: 0.84 AoV VTI: 0.23 AoV Pk Grad: 5.00 Aov Mn Grad: 3.00 KEILY Cont.VTI: 1.82 LVOT LVOT Pk Kwasi: 0.65 LVOT Mn Kwasi: 0.45 LVOT VTI: 0.12 LVOT Pk Grad: 2.00 LVOT Mn Grad: 1.00 LVOT Diam: 2.10 LVOT Area: 3.46 Diastolic Function MV Pk E: 0.95 MV Pk A: 0.27 E/A: 3.50 E'Medial: 4.57 E/E' Med: 20.70 E' Laterial: 7.94 E/E' Lat: 11.90 Right Ventricle TAPSE (mm): 20.80 TVS' Kwasi: 10.20 Tricuspid Valve TR Pk Kwasi: 2.18 TR Pk Grad: 19.00 RA Press: 3.00 RVSP: 22.00 Great Vessels Aorta Sinus of Valsalva: 3.40 2.0-3.5 cm Ao Asc: 3.50 2.1-3.4 cm Pulmonary Valve PV Pk Kwasi: 0.95 Peak PV Grad: 4.00 Updated in Other Vendor System with Status of Final Gilles Purcell MD electronically signed on 02/19/2024 7:59:00 PM with status of Final
== END ==
LOC: HO.CARD 12:43
PROVIDERS: PCP Internal Medicine; Visit Provider Internal Medicine
DX: I50.20 Unspecified systolic (congestive) heart failure (principal)
CPT/HCPCS: 93306; Q9957

== ENCOUNTER → 2024-02-18 13:00 | Outpatient (BNV) | payer MEDICARE, SELFPAY | PROVIDERS: PCP Internal Medicine; Visit Provider Internal Medicine Cardiovascular Disease | DX: I50.20 Unspecified systolic (congestive) heart failure (principal); Z95.0 Presence of cardiac pacemaker; I34.0 Nonrheumatic mitral (valve) insufficiency | CPT/HCPCS: 93306 ==

== ENCOUNTER → 2024-03-02 23:59 | Outpatient (BNV) | payer MEDICARE, SELFPAY ==
--- NOTE | 2024-03-09 16:01 | MHC.OFFVIS ---
Intake Visit Reasons: Remote HF monitoring- [employer] Allergies aspirin Allergy (Intermediate, Verified 01/27/24 13:47) Hives clindamycin Allergy (Intermediate, Verified 01/27/24 13:47) Diarrhea dipyridamole Allergy (Intermediate, Verified 01/27/24 13:47) Diarrhea doxycycline Allergy (Intermediate, Verified 01/27/24 13:47) Diarrhea enalapril Allergy (Intermediate, Verified 01/27/24 13:47) dry cough erythromycin base Allergy (Intermediate, Verified 01/27/24 13:47) Nausea, puffy face lansoprazole [Prevacid] Allergy (Intermediate, Verified 01/27/24 13:47) pruritus metronidazole Allergy (Intermediate, Verified 01/27/24 13:47) Diarrhea Penicillins [PENICILLINS] Allergy (Intermediate, Verified 01/27/24 13:47) hives Sulfa (Sulfonamide Antibiotics) [SULFA (SULFONAMIDE ANTIBIOTICS)] Allergy (Intermediate, Verified 01/27/24 13:47) Hives ticlopidine [TICLOPIDINE] Allergy (Intermediate, Verified 01/27/24 13:47) hives tramadol [TRAMADOL] Allergy (Intermediate, Verified 01/27/24 13:47) HIVES loratadine [LORATADINE] Allergy (Unknown, Verified 01/27/24 13:47) UNKNOWN levofloxacin Adverse Reaction (Intermediate, Verified 01/27/24 13:47) Diarrhea lisinopril [Zestril] Adverse Reaction (Intermediate, Verified 01/27/24 13:47) dry cough, chest pressure PFSH Medical History Joint pain Hand weakness Neuropathy Medicare annual wellness visit, initial Biventricular cardiac pacemaker in situ History of pacemaker Cardiac pacemaker in situ Heart failure with reduced ejection fraction Cardiomyopathy Hearing loss Osteoporosis Glaucoma GERD (gastroesophageal reflux disease) Paroxysmal atrial fibrillation Essential hypertension Pure hypercholesterolemia Surgical History Trigger finger, right middle finger History of removal of cyst History of bone graft Enchondroma of humerus History of basal cell carcinoma (BCC) excision History of lumbar laminectomy History of total ankle replacement History of cataract surgery History of breast biopsy S/P HAILEY (total abdominal hysterectomy) History of ankle surgery History of cholecystectomy History of appendectomy History of tonsillectomy Family History Father Myocardial infarction Mother No problems noted. Paternal Aunt Colon cancer Breast cancer Sister Myocardial infarction Social History Housing: Apartment Alcohol intake: never Patient Tobacco Use Status: Never used Tobacco e-Cigarette/Vaping Use: Never Used Second Hand Smoke Exposure: No service: No Current occupational status: retired Cognitive needs: Yes Hearing needs: Yes Vision needs: Yes Office Procedures Cardiac Device Check Cardiac Device Check Details: Remote heart failure report generated 03/01/2024. Heart failure parameters are stable [id number] Cardiac Device Interrogation, cardio physiologic monitor Procedure code (CPT) selection complete Assessment & Plan Assessment & Plan (1) Biventricular cardiac pacemaker in situ: Code(s): Z95.0 - Presence of cardiac pacemaker Category: Medical Plan: See above
== END ==
PROVIDERS: PCP Internal Medicine; Visit Provider Internal Medicine Cardiovascular Disease
DX: Z45.018 Encounter for adjustment and management of other part of cardiac pacemaker (principal)
CPT/HCPCS: 93297

== ENCOUNTER 2024-03-08 12:48 | Outpatient (REF) | payer MEDICARE, SELFPAY ==
--- NOTE | ~2024-03-08 | MM_ITS ---
EXAMINATION: MM SCREENING DIGITAL BREAST TOMOSYNTHESIS, BILATERAL CLINICAL INFORMATION: Screening. Asymptomatic. COMPARISON: Mammography: This study is compared with prior exams dating back to 2019. TECHNIQUE: Digital breast tomosynthesis is performed in both the craniocaudal and mediolateral oblique views along with computer-aided detection (CAD). Synthesized 2D images are generated from the tomosynthesis. FINDINGS: There are scattered areas of fibroglandular density (ACR BI-RADS breast composition Category b). There are no significant masses, abnormal calcifications, or other abnormalities. There are few, bilateral, unchanged benign calcifications in each breast. There is a pacemaker in superior aspect of the right side of the chest. MM/MM tomosynthesis screening BI IMPRESSION: No mammographic evidence of malignancy. ASSESSMENT: BI-RADS BI-RADS 2 - Benign Findings RECOMMENDATION: Routine annual mammography screening. 1 year F/U This examination should not preclude the clinical evaluation of a suspicious palpable abnormality. This patient's information was entered into a reminder system with a target due date for their next mammogram.
== END 2024-03-08 12:49 | disposition home or self-care (01) ==
LOC: HO.MAMMO 12:48
PROVIDERS: PCP Internal Medicine; Visit Provider Internal Medicine
DX: Z12.31 Encounter for screening mammogram for malignant neoplasm of breast (principal)
CPT/HCPCS: 77063; 77067

== ENCOUNTER → 2024-03-08 13:15 | Outpatient (BNV) | payer MEDICARE, SELFPAY | PROVIDERS: PCP Internal Medicine; Visit Provider Radiology Diagnostic Radiology | DX: Z12.31 Encounter for screening mammogram for malignant neoplasm of breast (principal) | CPT/HCPCS: 77063; 77067 ==

== ENCOUNTER 2024-03-27 12:23 | Outpatient (AMB) | payer MEDICARE, SELFPAY ==
[2024-03-27 12:32] VITALS: BP 104/64; PULSE 74; BMI 27.4
--- NOTE | 2024-03-27 12:32 | A.OFFVIS_ITS ---
Vital Signs 03/27/24 12:32 Height 5 ft 2.5 in Weight 152 lb 1.903 oz BMI 27.4 BP 104/64 Blood Pressure Location Lt brachial Position Sitting Pulse 74 Intake Visit Reasons: 6M follow up Intake Note: 6 month follow-up [facility] Underwriter Solicitation Director Required: No Allergies aspirin Allergy (Intermediate, Verified 01/27/24 13:47) Hives clindamycin Allergy (Intermediate, Verified 01/27/24 13:47) Diarrhea dipyridamole Allergy (Intermediate, Verified 01/27/24 13:47) Diarrhea doxycycline Allergy (Intermediate, Verified 01/27/24 13:47) Diarrhea enalapril Allergy (Intermediate, Verified 01/27/24 13:47) dry cough erythromycin base Allergy (Intermediate, Verified 01/27/24 13:47) Nausea, puffy face lansoprazole [Prevacid] Allergy (Intermediate, Verified 01/27/24 13:47) pruritus metronidazole Allergy (Intermediate, Verified 01/27/24 13:47) Diarrhea Penicillins [PENICILLINS] Allergy (Intermediate, Verified 01/27/24 13:47) hives Sulfa (Sulfonamide Antibiotics) [SULFA (SULFONAMIDE ANTIBIOTICS)] Allergy (Intermediate, Verified 01/27/24 13:47) Hives ticlopidine [TICLOPIDINE] Allergy (Intermediate, Verified 01/27/24 13:47) hives tramadol [TRAMADOL] Allergy (Intermediate, Verified 01/27/24 13:47) HIVES loratadine [LORATADINE] Allergy (Unknown, Verified 01/27/24 13:47) UNKNOWN levofloxacin Adverse Reaction (Intermediate, Verified 01/27/24 13:47) Diarrhea lisinopril [Zestril] Adverse Reaction (Intermediate, Verified 01/27/24 13:47) dry cough, chest pressure Medication List - Last Reconciled 03/27/24 by Keon Elam MD acetaminophen ER 650 mg PO .AFTER LUNCH alendronate 70 mg PO QWEEK amiodarone 100 mg (1/2 x 200 mg) PO DAILY 90 days apixaban (Eliquis) 5 mg PO BID 90 days atenolol 50 mg PO DAILY 90 days calcium carbonate-vit D3-min 600 mg calcium- 400 unit 1 tab PO BID dicyclomine 20 mg PO TID 90 days fexofenadine (Eneida Allergy) 180 mg PO DAILY PRN latanoprost 0.005% drps ophthalmic (eye) levocetirizine 5 mg PO DAILY losartan 50 mg PO DAILY magnesium oxide 400 mg PO DAILY rosuvastatin 10 mg PO DAILY 90 days sacubitril-valsartan 24-26 mg (Entresto) 1 tab PO BID 90 days spironolactone 25 mg PO DAILY 90 days triamcinolone acetonide (Nasacort) 1 spray intranasal DAILY triamcinolone acetonide 0.1% appl topical BID HPI Comments Details: Deanna comes for follow-up. Patient is been doing very well. She continues to maintain activity level as tolerated. Denies any prolonged palpitation irregular heartbeat. No worsening heart failure symptoms. We have been noticing sometimes bump in her OptiVol although never has reached above the threshold. She denies any bleeding issues or neurologic events. No lightheadedness or syncope. Occasional dizziness. She uses a walker for balance. Echocardiogram shows persistent moderate to severe LV systolic dysfunction with LVEF of 30 35% [facility] Medical History Joint pain Hand weakness Neuropathy Medicare annual wellness visit, initial Biventricular cardiac pacemaker in situ History of pacemaker Cardiac pacemaker in situ Heart failure with reduced ejection fraction Cardiomyopathy Hearing loss Osteoporosis Glaucoma GERD (gastroesophageal reflux disease) Paroxysmal atrial fibrillation Essential hypertension Pure hypercholesterolemia Surgical History Trigger finger, right middle finger History of removal of cyst History of bone graft Enchondroma of humerus History of basal cell carcinoma (BCC) excision History of lumbar laminectomy History of total ankle replacement History of cataract surgery History of breast biopsy S/P HAILEY (total abdominal hysterectomy) History of ankle surgery History of cholecystectomy History of appendectomy History of tonsillectomy Family History Father Myocardial infarction Mother No problems noted. Paternal Aunt Colon cancer Breast cancer Sister Myocardial infarction Social History Housing: Apartment Alcohol intake: never Patient Tobacco Use Status: Never used Tobacco e-Cigarette/Vaping Use: Never Used Second Hand Smoke Exposure: No service: No Current occupational status: retired Cognitive needs: Yes Hearing needs: Yes Vision needs: Yes Review of Systems Const Denies chills, Denies fatigue, Denies fever(s), Denies frequent falls, Denies weakness, Denies weight gain and Denies weight loss ENT Denies dizziness Card Denies chest pain, Denies leg edema, Denies lightheadedness, Denies palpitations, Denies dyspnea, Denies dyspnea on exertion, Denies orthopnea and Denies other (loss of consciousness) Resp Denies cough, Denies dyspnea and Denies dyspnea on exertion GI Denies hematochezia and Denies change in stool character Musc Denies abnormal gait, Denies muscle weakness, Denies numbness, Denies radiating pain into limb and Denies tingling Neuro Denies abnormal gait, Denies dizziness, Denies frequent falls, Denies numbness, Denies tingling and Denies weakness Endo Denies fatigue and Denies palpitations Physical Exam Vital Signs: Last Vital Signs Pulse 74 03/27/24 12:32 BP 104/64 03/27/24 12:32 BMI result Body Mass Index 27.4 Const General: cooperative, comfortable, no acute distress, alert, awake and well groomed Nutritional Appearance: average body habitus Orientation/consciousness: patient oriented x3 Limitations: ambulation with walker Neck Neck: Yes trachea midline, Yes supple and Yes no JVD Resp Effort & Inspection: normal respiratory effort Auscultation: clear to auscultation bilaterally Cardio Jugular venous distension: no JVD Rate: regular rate Rhythm: regular rhythm Heart sounds: S1 normal heart sound present and S2 normal heart sound present GI Auscultation: normal bowel sounds Skin General skin exam: no rashes or lesions noted Neuro General: patient oriented x3 and no focal motor deficits Extrem General: Yes no clubbing, cyanosis or edema Psych Appearance: grossly normal Office Procedures Cardiac Device Check Cardiac Device Check Details: Biventricular Medtronic pacemaker in place. Programmed in DDDR at 60 beats per minute. Battery life is about 9 years. Atrial sensing is 0.6 mV. Ventricular sensing is excellent. Atrial and biventricular pacing thresholds adequate and readjusted to enhance battery life. Pacing lead impedance is stable. No atrial fibrillation noted. Bi V pacing 98.5% of the time [id number] Cardiac Device Check, multi lead pacemaker Procedure code (CPT) selection complete EKG Details: EKG shows AV dual paced rhythm with LV pacing 38130-[id number], Complete Assessment & Plan Assessment & Plan (1) Heart failure with reduced ejection fraction: Code(s): I50.20 - Unspecified systolic (congestive) heart failure Category: Medical Plan: Heart failure with reduced ejection fraction with no signs or symptoms of heart failure with good volume status at this point time. She also has good functional status. NYHA class 1-2. Continue to maintain activity level as tolerated. Continue current neurohormonal modulation with Entresto, spironolactone as well as atenolol therapy. Can be switched to carvedilol therapy. Her blood pressure on low side. She is also listed to have losartan which should not be in addition to Entresto. Will confirm the same. If she is on losartan only, will continue the same as a blood pressure is low and can not switch to Entresto therapy. If she is on both will stop losartan and uptitrate Entresto therapy. (2) Biventricular cardiac pacemaker in situ: Code(s): Z95.0 - Presence of cardiac pacemaker Category: Medical Plan: Biventricular cardiac pacemaker in-situ which is working well. Follow-up monthly for heart failure and every 3 months for device check. Bi V device has helped her significantly with heart failure syndrome. (3) Paroxysmal atrial fibrillation: Code(s): I48.0 - Paroxysmal atrial fibrillation Category: Medical Plan: Paroxysmal atrial fibrillation which has remained suppressed and has done well with rhythm control approach. Continue the same. Continue current amiodarone therapy. Continue full oral anticoagulation, currently on Eliquis 5 mg b.i.d.. Quarterly renal function test should be pursued. Avoidance of stimulants was discussed. Will continue monitor by pacer telemetry. Follow up in the clinic in 6 months time, sooner p.r.n.. Thank you for allowing me to partake in her care Coding Level of Care Code Est Pt Level 4 (94596) Diagnoses Heart failure with reduced ejection fraction I50.20 Biventricular cardiac pacemaker in situ Z95.0 Paroxysmal atrial fibrillation I48.0 CPT Codes Cardiac Device Check - Cardiac Device 3: [id number] Cardiac Device Check, multi lead pacemaker ([id number]) EKG - CPT: 77341-[id number], Complete ([id number])
== END 2024-03-27 13:04 | disposition home or self-care (01) ==
PROVIDERS: PCP Internal Medicine; Visit Provider Internal Medicine Cardiovascular Disease
DX: I50.20 Unspecified systolic (congestive) heart failure (principal); Z95.0 Presence of cardiac pacemaker; I48.0 Paroxysmal atrial fibrillation
CPT/HCPCS: 93010; 93281; 99214

== ENCOUNTER → 2024-03-27 12:23 | Outpatient (BNVA) | payer MEDICARE, SELFPAY | PROVIDERS: PCP Internal Medicine; Visit Provider Internal Medicine Cardiovascular Disease | DX: Z45.018 Encounter for adjustment and management of other part of cardiac pacemaker (principal); I48.0 Paroxysmal atrial fibrillation; I50.20 Unspecified systolic (congestive) heart failure | CPT/HCPCS: 93005; 99212 ==

== ENCOUNTER → 2024-04-01 23:59 | Outpatient (BNV) | payer MEDICARE, SELFPAY ==
--- NOTE | 2024-04-04 15:55 | A.OFFVIS_ITS ---
Intake Visit Reasons: Remote device check-Medtronic Allergies aspirin Allergy (Intermediate, Verified 01/27/24 13:47) Hives clindamycin Allergy (Intermediate, Verified 01/27/24 13:47) Diarrhea dipyridamole Allergy (Intermediate, Verified 01/27/24 13:47) Diarrhea doxycycline Allergy (Intermediate, Verified 01/27/24 13:47) Diarrhea enalapril Allergy (Intermediate, Verified 01/27/24 13:47) dry cough erythromycin base Allergy (Intermediate, Verified 01/27/24 13:47) Nausea, puffy face lansoprazole [Prevacid] Allergy (Intermediate, Verified 01/27/24 13:47) pruritus metronidazole Allergy (Intermediate, Verified 01/27/24 13:47) Diarrhea Penicillins [PENICILLINS] Allergy (Intermediate, Verified 01/27/24 13:47) hives Sulfa (Sulfonamide Antibiotics) [SULFA (SULFONAMIDE ANTIBIOTICS)] Allergy (Intermediate, Verified 01/27/24 13:47) Hives ticlopidine [TICLOPIDINE] Allergy (Intermediate, Verified 01/27/24 13:47) hives tramadol [TRAMADOL] Allergy (Intermediate, Verified 01/27/24 13:47) HIVES loratadine [LORATADINE] Allergy (Unknown, Verified 01/27/24 13:47) UNKNOWN levofloxacin Adverse Reaction (Intermediate, Verified 01/27/24 13:47) Diarrhea lisinopril [Zestril] Adverse Reaction (Intermediate, Verified 01/27/24 13:47) dry cough, chest pressure [facility] Medical History Joint pain Hand weakness Neuropathy Medicare annual wellness visit, initial Biventricular cardiac pacemaker in situ History of pacemaker Cardiac pacemaker in situ Heart failure with reduced ejection fraction Cardiomyopathy Hearing loss Osteoporosis Glaucoma GERD (gastroesophageal reflux disease) Paroxysmal atrial fibrillation Essential hypertension Pure hypercholesterolemia Surgical History Trigger finger, right middle finger History of removal of cyst History of bone graft Enchondroma of humerus History of basal cell carcinoma (BCC) excision History of lumbar laminectomy History of total ankle replacement History of cataract surgery History of breast biopsy S/P HAILEY (total abdominal hysterectomy) History of ankle surgery History of cholecystectomy History of appendectomy History of tonsillectomy Family History Father Myocardial infarction Mother No problems noted. Paternal Aunt Colon cancer Breast cancer Sister Myocardial infarction Social History Housing: Apartment Alcohol intake: never Patient Tobacco Use Status: Never used Tobacco e-Cigarette/Vaping Use: Never Used Second Hand Smoke Exposure: No service: No Current occupational status: retired Cognitive needs: Yes Hearing needs: Yes Vision needs: Yes Office Procedures Cardiac Device Check Cardiac Device Check Details: Remote pacemaker report generated 04/02/2024. Pacemaker function is adequate. Bi V pacing 100% of the time [id number] Cardiac Device Interrogation, pacemaker Procedure code (CPT) selection complete Assessment & Plan Assessment & Plan (1) Biventricular cardiac pacemaker in situ: Code(s): Z95.0 - Presence of cardiac pacemaker Category: Medical Plan: See above Coding Level of Care Code Procedure Only Diagnoses Biventricular cardiac pacemaker in situ Z95.0 CPT Codes Cardiac Device Check - Cardiac Device 12: [id number] Cardiac Device Interrogation, pacemaker ([id number])
== END ==
PROVIDERS: PCP Internal Medicine; Visit Provider Internal Medicine Cardiovascular Disease
DX: Z45.018 Encounter for adjustment and management of other part of cardiac pacemaker (principal)
CPT/HCPCS: 93294

== ENCOUNTER → 2024-04-01 23:59 | Outpatient (BNV) | payer MEDICARE, SELFPAY ==
--- NOTE | 2024-04-04 15:57 | A.OFFVIS_ITS ---
Intake Visit Reasons: Remote HF monitoring- Medtronic Allergies aspirin Allergy (Intermediate, Verified 01/27/24 13:47) Hives clindamycin Allergy (Intermediate, Verified 01/27/24 13:47) Diarrhea dipyridamole Allergy (Intermediate, Verified 01/27/24 13:47) Diarrhea doxycycline Allergy (Intermediate, Verified 01/27/24 13:47) Diarrhea enalapril Allergy (Intermediate, Verified 01/27/24 13:47) dry cough erythromycin base Allergy (Intermediate, Verified 01/27/24 13:47) Nausea, puffy face lansoprazole [Prevacid] Allergy (Intermediate, Verified 01/27/24 13:47) pruritus metronidazole Allergy (Intermediate, Verified 01/27/24 13:47) Diarrhea Penicillins [PENICILLINS] Allergy (Intermediate, Verified 01/27/24 13:47) hives Sulfa (Sulfonamide Antibiotics) [SULFA (SULFONAMIDE ANTIBIOTICS)] Allergy (Intermediate, Verified 01/27/24 13:47) Hives ticlopidine [TICLOPIDINE] Allergy (Intermediate, Verified 01/27/24 13:47) hives tramadol [TRAMADOL] Allergy (Intermediate, Verified 01/27/24 13:47) HIVES loratadine [LORATADINE] Allergy (Unknown, Verified 01/27/24 13:47) UNKNOWN levofloxacin Adverse Reaction (Intermediate, Verified 01/27/24 13:47) Diarrhea lisinopril [Zestril] Adverse Reaction (Intermediate, Verified 01/27/24 13:47) dry cough, chest pressure [facility] Medical History Joint pain Hand weakness Neuropathy Medicare annual wellness visit, initial Biventricular cardiac pacemaker in situ History of pacemaker Cardiac pacemaker in situ Heart failure with reduced ejection fraction Cardiomyopathy Hearing loss Osteoporosis Glaucoma GERD (gastroesophageal reflux disease) Paroxysmal atrial fibrillation Essential hypertension Pure hypercholesterolemia Surgical History Trigger finger, right middle finger History of removal of cyst History of bone graft Enchondroma of humerus History of basal cell carcinoma (BCC) excision History of lumbar laminectomy History of total ankle replacement History of cataract surgery History of breast biopsy S/P HAILEY (total abdominal hysterectomy) History of ankle surgery History of cholecystectomy History of appendectomy History of tonsillectomy Family History Father Myocardial infarction Mother No problems noted. Paternal Aunt Colon cancer Breast cancer Sister Myocardial infarction Social History Housing: Apartment Alcohol intake: never Patient Tobacco Use Status: Never used Tobacco e-Cigarette/Vaping Use: Never Used Second Hand Smoke Exposure: No service: No Current occupational status: retired Cognitive needs: Yes Hearing needs: Yes Vision needs: Yes Office Procedures Cardiac Device Check Cardiac Device Check Details: Remote heart failure report generated 04/01/2024. Heart failure parameters are stable [id number] Cardiac Device Interrogation, cardio physiologic monitor Procedure code (CPT) selection complete Assessment & Plan Assessment & Plan (1) Biventricular cardiac pacemaker in situ: Code(s): Z95.0 - Presence of cardiac pacemaker Category: Medical Plan: See above Coding Level of Care Code Procedure Only Diagnoses Biventricular cardiac pacemaker in situ Z95.0 CPT Codes Cardiac Device Check - Cardiac Device 15: [id number] Cardiac Device Interrogation, cardio physiologic monitor ([id number])
== END ==
PROVIDERS: PCP Internal Medicine; Visit Provider Internal Medicine Cardiovascular Disease
DX: Z45.018 Encounter for adjustment and management of other part of cardiac pacemaker (principal)
CPT/HCPCS: 93297

== ENCOUNTER 2024-04-21 13:13 | Outpatient (REF) | payer MEDICARE, SELFPAY ==
--- NOTE | ~2024-04-21 | CT_ITS ---
EXAMINATION: CT SINUS WITHOUT CONTRAST CLINICAL INFORMATION: Chronic sinusitis. COMPARISON: CT temporal bones 11/10/2023. TECHNIQUE: A multidetector CT acquisition of the sinuses is obtained without contrast. This CT examination was performed using dose optimization techniques as appropriate, variously including the following: *Automated exposure control *Adjustment of mA and/or kV according to patient size (this includes techniques or standardized protocols for targeted exams where dose is matched to indication/reason for exam; i.e. extremities or head) *Use of iterative reconstruction technique FINDINGS: Similar significant opacification of the left sphenoid sinus which remains pneumatized into the left sphenoid wing and basisphenoid of the clivus. Heterogeneous density throughout the left sphenoid sinus is again noted. A MRI with and without IV contrast could be obtained to exclude any underlying enhancing intrasphenoid sinus mass lesion. The right sphenoid sinus is clear. Pneumatization of the optic struts and anterior clinoid processes bilaterally. There is mild mucosal thickening along the periphery of the pneumatized left anterior clinoid process. There is a retention cyst along the floor the right maxillary sinus and there is mild mucosal thickening within the left maxillary sinus. Mild mucosal thickening within the ethmoid air cells bilaterally. The frontal sinuses are clear. There is rightward deviation of the bony nasal septum. Lara bullosa within the left middle turbinate. Fovea ethmoidalis and olfactory grooves are symmetric in depth. The bony orbits are intact. The internal carotid arteries remain well covered with bone. Mastoid air cells and the middle ear cavities are clear. TMJs are unremarkable. Hyperostosis frontalis interna. Periapical lucency associated with the roots of the residual right maxillary molar with overlying dehiscence of the right maxillary sinus floor predisposing to odontogenic sinusitis. CT/CT sinus wo IV con IMPRESSION: * Similar significant opacification of the left sphenoid sinus which remains pneumatized into the left sphenoid wing and basisphenoid of the clivus. Heterogeneous density throughout the left sphenoid sinus is again noted. A MRI with and without IV contrast could be obtained to exclude any underlying enhancing intrasphenoid sinus mass lesion. There is a retention cyst along the floor the right maxillary sinus, there is mild mucosal thickening within the left maxillary sinus, and there is mild mucosal thickening within the ethmoid air cells bilaterally. * Periapical lucency associated with the roots of the residual right maxillary molar with overlying dehiscence of the right maxillary sinus floor predisposing to odontogenic sinusitis. * There is rightward deviation of the bony nasal septum. Lara bullosa within the left middle turbinate. 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
== END 2024-04-21 13:14 | disposition home or self-care (01) ==
LOC: HO.CT 13:13
PROVIDERS: PCP Internal Medicine; Visit Provider Otolaryngology
DX: J32.3 Chronic sphenoidal sinusitis (principal); J32.8 Other chronic sinusitis
CPT/HCPCS: 70486

== ENCOUNTER 2024-05-04 11:11 | Outpatient (REF) | payer SELFPAY | END 2024-05-04 11:12 | disposition home or self-care (01) | LOC: HO.HAP 11:11 | PROVIDERS: Visit Provider Internal Medicine | DX: Z46.1 Encounter for fitting and adjustment of hearing aid (principal); H90.3 Sensorineural hearing loss, bilateral | CPT/HCPCS: 92593 ==

== ENCOUNTER → 2024-05-19 23:59 | Outpatient (BNV) | payer MEDICARE, SELFPAY ==
--- NOTE | 2024-05-22 08:57 | A.OFFVIS_ITS ---
Intake Visit Reasons: REmote HF monitoring- Medtronic Allergies aspirin Allergy (Intermediate, Verified 01/27/24 13:47) Hives clindamycin Allergy (Intermediate, Verified 01/27/24 13:47) Diarrhea dipyridamole Allergy (Intermediate, Verified 01/27/24 13:47) Diarrhea doxycycline Allergy (Intermediate, Verified 01/27/24 13:47) Diarrhea enalapril Allergy (Intermediate, Verified 01/27/24 13:47) dry cough erythromycin base Allergy (Intermediate, Verified 01/27/24 13:47) Nausea, puffy face lansoprazole [Prevacid] Allergy (Intermediate, Verified 01/27/24 13:47) pruritus metronidazole Allergy (Intermediate, Verified 01/27/24 13:47) Diarrhea Penicillins [PENICILLINS] Allergy (Intermediate, Verified 01/27/24 13:47) hives Sulfa (Sulfonamide Antibiotics) [SULFA (SULFONAMIDE ANTIBIOTICS)] Allergy (Intermediate, Verified 01/27/24 13:47) Hives ticlopidine [TICLOPIDINE] Allergy (Intermediate, Verified 01/27/24 13:47) hives tramadol [TRAMADOL] Allergy (Intermediate, Verified 01/27/24 13:47) HIVES loratadine [LORATADINE] Allergy (Unknown, Verified 01/27/24 13:47) UNKNOWN levofloxacin Adverse Reaction (Intermediate, Verified 01/27/24 13:47) Diarrhea lisinopril [Zestril] Adverse Reaction (Intermediate, Verified 01/27/24 13:47) dry cough, chest pressure [facility] Medical History Joint pain Hand weakness Neuropathy Medicare annual wellness visit, initial Biventricular cardiac pacemaker in situ History of pacemaker Cardiac pacemaker in situ Heart failure with reduced ejection fraction Cardiomyopathy Hearing loss Osteoporosis Glaucoma GERD (gastroesophageal reflux disease) Paroxysmal atrial fibrillation Essential hypertension Pure hypercholesterolemia Surgical History Trigger finger, right middle finger History of removal of cyst History of bone graft Enchondroma of humerus History of basal cell carcinoma (BCC) excision History of lumbar laminectomy History of total ankle replacement History of cataract surgery History of breast biopsy S/P HAILEY (total abdominal hysterectomy) History of ankle surgery History of cholecystectomy History of appendectomy History of tonsillectomy Family History Father Myocardial infarction Mother No problems noted. Paternal Aunt Colon cancer Breast cancer Sister Myocardial infarction Social History Housing: Apartment Alcohol intake: never Patient Tobacco Use Status: Never used Tobacco e-Cigarette/Vaping Use: Never Used Second Hand Smoke Exposure: No service: No Current occupational status: retired Cognitive needs: Yes Hearing needs: Yes Vision needs: Yes Office Procedures Cardiac Device Check Cardiac Device Check Details: Remote heart failure report generated 05/19/2024. Heart failure parameters are stable [id number] Cardiac Device Interrogation, cardio physiologic monitor Procedure code (CPT) selection complete Assessment & Plan Assessment & Plan (1) Biventricular cardiac pacemaker in situ: Code(s): Z95.0 - Presence of cardiac pacemaker Category: Medical Plan: See above Coding Level of Care Code Procedure Only Diagnoses Biventricular cardiac pacemaker in situ Z95.0 CPT Codes Cardiac Device Check - Cardiac Device 15: [id number] Cardiac Device Interrogation, cardio physiologic monitor ([id number])
== END ==
PROVIDERS: PCP Internal Medicine; Visit Provider Internal Medicine Cardiovascular Disease
DX: Z45.018 Encounter for adjustment and management of other part of cardiac pacemaker (principal)
CPT/HCPCS: 93297

== ENCOUNTER 2024-06-13 11:43 | Outpatient (REF) | payer MEDICARE, SELFPAY ==
[2024-06-13 12:58] LABS: Alanine Aminotransferase 19 U/L (0-31); Albumin Level 4.3 g/dL (3.5-5.0); Alkaline Phosphatase 65 U/L (39-117); Anion Gap 12 (12-20); Aspartate Amino Transferase 26 U/L (5-31); Bilirubin Total 0.4 mg/dL (0.0-1.0); Blood Urea Nitrogen 17 mg/dL (9-16); Carbon Dioxide 29 mmol/L (22-29); Chloride 105 mmol/L (96-108); Cholesterol 142 mg/dL (<200); Estimated Glomerular Filt Rate 48; Glucose Fasting 85 mg/dL (60-99); HDL Cholesterol 49 mg/dL (>40); LDL Cholesterol Calculated 79 mg/dL (<100); Potassium 4.2 mmol/L (3.3-5.1); Sodium 142 mmol/L (135-145); Triglycerides 72 mg/dL (<150)
[2024-06-18 21:28] LABS: NT-proBNP 615 pg/mL (<450)
== END 2024-06-13 11:44 | disposition home or self-care (01) ==
LOC: HO.LAB 11:43
PROVIDERS: PCP Internal Medicine; Visit Provider Internal Medicine
DX: I50.20 Unspecified systolic (congestive) heart failure (principal); E78.5 Hyperlipidemia, unspecified
CPT/HCPCS: 36415; 80053; 80061; 83880

== ENCOUNTER → 2024-06-19 23:59 | Outpatient (BNV) | payer MEDICARE, SELFPAY ==
--- NOTE | 2024-06-21 10:02 | A.OFFVIS_ITS ---
Intake Visit Reasons: Remote HF monitroing -[employer]tr[employer] Allergies aspirin Allergy (Intermediate, Verified 01/27/24 13:47) Hives clindamycin Allergy (Intermediate, Verified 01/27/24 13:47) Diarrhea dipyridamole Allergy (Intermediate, Verified 01/27/24 13:47) Diarrhea doxycycline Allergy (Intermediate, Verified 01/27/24 13:47) Diarrhea enalapril Allergy (Intermediate, Verified 01/27/24 13:47) dry cough erythromycin base Allergy (Intermediate, Verified 01/27/24 13:47) Nausea, puffy face lansoprazole [Prevacid] Allergy (Intermediate, Verified 01/27/24 13:47) pruritus metronidazole Allergy (Intermediate, Verified 01/27/24 13:47) Diarrhea Penicillins [PENICILLINS] Allergy (Intermediate, Verified 01/27/24 13:47) hives Sulfa (Sulfonamide Antibiotics) [SULFA (SULFONAMIDE ANTIBIOTICS)] Allergy (Intermediate, Verified 01/27/24 13:47) Hives ticlopidine [TICLOPIDINE] Allergy (Intermediate, Verified 01/27/24 13:47) hives tramadol [TRAMADOL] Allergy (Intermediate, Verified 01/27/24 13:47) HIVES loratadine [LORATADINE] Allergy (Unknown, Verified 01/27/24 13:47) UNKNOWN levofloxacin Adverse Reaction (Intermediate, Verified 01/27/24 13:47) Diarrhea lisinopril [Zestril] Adverse Reaction (Intermediate, Verified 01/27/24 13:47) dry cough, chest pressure [facility] Medical History Joint pain Hand weakness Neuropathy Medicare annual wellness visit, initial Biventricular cardiac pacemaker in situ History of pacemaker Cardiac pacemaker in situ Heart failure with reduced ejection fraction Cardiomyopathy Hearing loss Osteoporosis Glaucoma GERD (gastroesophageal reflux disease) Paroxysmal atrial fibrillation Essential hypertension Pure hypercholesterolemia Surgical History Trigger finger, right middle finger History of removal of cyst History of bone graft Enchondroma of humerus History of basal cell carcinoma (BCC) excision History of lumbar laminectomy History of total ankle replacement History of cataract surgery History of breast biopsy S/P HAILEY (total abdominal hysterectomy) History of ankle surgery History of cholecystectomy History of appendectomy History of tonsillectomy Family History Father Myocardial infarction Mother No problems noted. Paternal Aunt Colon cancer Breast cancer Sister Myocardial infarction Social History Housing: Apartment Alcohol intake: never Patient Tobacco Use Status: Never used Tobacco e-Cigarette/Vaping Use: Never Used Second Hand Smoke Exposure: No service: No Current occupational status: retired Cognitive needs: Yes Hearing needs: Yes Vision needs: Yes Office Procedures Cardiac Device Check Cardiac Device Check Details: Remote heart failure report generated 06/19/2024. Heart failure parameters are stable [id number] Cardiac Device Interrogation, cardio physiologic monitor Procedure code (CPT) selection complete Assessment & Plan Assessment & Plan (1) Biventricular cardiac pacemaker in situ: Code(s): Z95.0 - Presence of cardiac pacemaker Category: Medical Plan: See above Coding Level of Care Code Procedure Only Diagnoses Biventricular cardiac pacemaker in situ Z95.0 CPT Codes Cardiac Device Check - Cardiac Device 15: [id number] Cardiac Device Interrogation, cardio physiologic monitor ([id number])
== END ==
PROVIDERS: PCP Internal Medicine; Visit Provider Internal Medicine Cardiovascular Disease
DX: Z45.018 Encounter for adjustment and management of other part of cardiac pacemaker (principal)
CPT/HCPCS: 93297

== ENCOUNTER 2024-06-21 13:23 | Outpatient (AMB) | payer MEDICARE, SELFPAY ==
[2024-06-21 13:30] VITALS: BP 110/70; BMI 27.5
--- NOTE | 2024-06-21 13:30 | MHC.PC.OV ---
Vital Signs 06/21/24 13:30 Height 5 ft 2.5 in Weight 153 lb BMI 27.5 BP 110/70 Blood Pressure Location Lt brachial Position Sitting Intake Visit Reasons: annual exam Intake Note: Patient here for an annual physical exam Distance Education Coordinator Required: No Accompanied by: Self / Same As Patient Allergies aspirin Allergy (Intermediate, Verified 06/21/24 13:46) Hives clindamycin Allergy (Intermediate, Verified 06/21/24 13:46) Diarrhea dipyridamole Allergy (Intermediate, Verified 06/21/24 13:46) Diarrhea doxycycline Allergy (Intermediate, Verified 06/21/24 13:46) Diarrhea enalapril Allergy (Intermediate, Verified 06/21/24 13:46) dry cough erythromycin base Allergy (Intermediate, Verified 06/21/24 13:46) Nausea, puffy face lansoprazole [Prevacid] Allergy (Intermediate, Verified 06/21/24 13:46) pruritus metronidazole Allergy (Intermediate, Verified 06/21/24 13:46) Diarrhea Penicillins [PENICILLINS] Allergy (Intermediate, Verified 06/21/24 13:46) hives Sulfa (Sulfonamide Antibiotics) [SULFA (SULFONAMIDE ANTIBIOTICS)] Allergy (Intermediate, Verified 06/21/24 13:46) Hives ticlopidine [TICLOPIDINE] Allergy (Intermediate, Verified 06/21/24 13:46) hives tramadol [TRAMADOL] Allergy (Intermediate, Verified 06/21/24 13:46) HIVES loratadine [LORATADINE] Allergy (Unknown, Verified 06/21/24 13:46) UNKNOWN levofloxacin Adverse Reaction (Intermediate, Verified 06/21/24 13:46) Diarrhea lisinopril [Zestril] Adverse Reaction (Intermediate, Verified 06/21/24 13:46) dry cough, chest pressure Medication List - Last Reconciled 06/21/24 by Keeley Curtis MD acetaminophen ER 650 mg PO .AFTER LUNCH alendronate 70 mg PO QWEEK amiodarone 100 mg (1/2 x 200 mg) PO DAILY 90 days apixaban (Eliquis) 5 mg PO BID 90 days atenolol 50 mg PO DAILY 90 days calcium carbonate-vit D3-min 600 mg calcium- 400 unit 1 tab PO BID dicyclomine 20 mg PO TID 90 days fexofenadine (Eneida Allergy) 180 mg PO DAILY latanoprost 0.005% drps ophthalmic (eye) levocetirizine 5 mg PO DAILY magnesium oxide 400 mg PO DAILY rosuvastatin 10 mg PO DAILY 90 days sacubitril-valsartan 24-26 mg (Entresto) 1 tab PO BID 90 days spironolactone 25 mg PO DAILY 90 days triamcinolone acetonide (Nasacort) 1 spray intranasal DAILY triamcinolone acetonide 0.1% appl topical BID Tobacco use date assessed: 01/27/24 Fall risk assessment: No Falls in past year Last assessed Fall Risk: 06/21/24 Dental Screening Dental Screen Date: 01/27/24 HPI HPI Comments History of Present Illness Details This is an 88-year-old female with heart failure with reduced ejection fraction and atrial fibrillation that comes for physical exam. Mammogram done 2023 was normal. No need for Pap smear or colonoscopy due to age. Congestive heart failure and atrial fibrillation are follow by cardiology and her NT proBNP has improved. Last ejection fraction was 30 to 35% in January of this year. Walks with a walker due to gait instability. Doing well. Use hearing aids for hearing loss. [facility] Medical History (Updated 06/21/24 @ 14:07 by Keeley Curtis MD) Joint pain Hand weakness Neuropathy Medicare annual wellness visit, initial Biventricular cardiac pacemaker in situ History of pacemaker Cardiac pacemaker in situ Heart failure with reduced ejection fraction Cardiomyopathy Hearing loss Osteoporosis Glaucoma GERD (gastroesophageal reflux disease) Paroxysmal atrial fibrillation Essential hypertension Pure hypercholesterolemia Surgical History Trigger finger, right middle finger History of removal of cyst History of bone graft Enchondroma of humerus History of basal cell carcinoma (BCC) excision History of lumbar laminectomy History of total ankle replacement History of cataract surgery History of breast biopsy S/P HAILEY (total abdominal hysterectomy) History of ankle surgery History of cholecystectomy History of appendectomy History of tonsillectomy Family History (Updated 06/21/24 @ 13:55 by Keeley Curtis MD) Father Myocardial infarction Mother Myocardial infarction Paternal Aunt Colon cancer Breast cancer Sister Myocardial infarction Social History Housing: Apartment Alcohol intake: never Patient Tobacco Use Status: Never used Tobacco e-Cigarette/Vaping Use: Never Used Second Hand Smoke Exposure: No service: No Current occupational status: retired Cognitive needs: Yes Hearing needs: Yes Vision needs: Yes Questionnaire Thrive Questionnaire Date Thrive assessed: 01/27/24 VALERIA-7 AMB Questionnaire VALERIA-7 Date VALERIA - 7 assessed: 01/27/24 Source: Developed by Drs. Sukdheep Borrero, Margo Manriquez, Arron Romero and colleagues, with an educational mario from [employer]. Review of Systems Const All systems reviewed & are unremarkable except as noted in HPI and below Card Denies chest pain at rest, Denies chest pain with activity, Denies edema, Denies irregular heart rhythm, Denies claudication, Denies dyspnea, Denies dyspnea on exertion, Denies orthopnea, Denies paroxysmal nocturnal dyspnea and Denies slow heart rate Resp Denies cough, Denies dyspnea and Denies dyspnea on exertion GI Denies abdominal pain, Denies change in bowel habits, Denies excessive flatus, Denies nausea and Denies vomiting Denies urinary incontinence, Denies urinary hesitancy and Denies urinary urgency Musc Denies abnormal gait, Denies atrophy, Denies deformity and Denies limited range of motion Skin/Breast Denies bleeding lesions, Denies changing lesions and Denies rash Neuro Denies abnormal gait, Denies behavioral changes, Denies confusion and Denies lack of coordination Psych Denies behavioral changes and Denies confusion Physical exam (Primary Care) Vital Signs: Last Vital Signs BP 110/70 06/21/24 13:30 BMI result Body Mass Index 27.5 Tobacco/Smoking Status: Tobacco use Status Tobacco use date assessed 01/27/24 06/21/24 13:39 Patient Tobacco Use Status Never used Tobacco 06/21/24 13:39 Tobacco use type 08/20/22 15:12 e-Cigarette/Vaping Use Never Used 06/21/24 13:39 Thrive Assessment: Date of Thrive Assessment Date Thrive assessed 01/27/24 06/21/24 13:39 Const General: No confusion Orientation/consciousness: patient oriented x3 and No confusion Limitations: ambulation with walker HENMT Head: Yes normal to inspection, Yes normocephalic and Yes atraumatic Ears: external ears normal Eyes General: appearance normal, both eyes and all related structures Eyelids: Yes eyelids normal Conjunctivae: conjunctivae normal Neck Neck: Yes normal visual inspection and Yes supple Resp Effort & Inspection: normal respiratory effort Auscultation: clear to auscultation bilaterally Cardio Jugular venous distension: no JVD Rate: regular rate Rhythm: regular rhythm Heart sounds: S1 normal heart sound present and S2 normal heart sound present GI Inspection: Yes normal to inspection Palpation (GI): Soft to palpation and nontender Auscultation: normal bowel sounds Skin General skin exam: no rashes or lesions noted Neuro General: patient oriented x3, no focal motor deficits and No confusion Extrem General: Yes full ROM Psych Appearance: grossly normal Immunizations tetanus-diphtheria toxoids-Td 2 Lf unit-2 Lf unit/0.5 mL IM suspension Performing Provider: Keeley Curtis MD [facility] Administered by: DANIEL Yates on 06/21/24 14:17 Dose Route Admin Location Dispensed Lot Number Expiration Date NDC Vegetable Thinner 0.5 mL IM Left Deltoid 0.5 mL [id number] 01/01/25 [address]-5 [employer] VIS Given Date VIS Provided VIS Publication Date 06/21/24 Single Vaccine 21 Eligibility Eligibility Date Funding Source Not VFC Eligible 06/21/24 [facility] Assessment and Plan Assessment & Plan (1) Physical exam: Code(s): Z00.00 - Encounter for general adult medical examination without abnormal findings Plan: Repeat in a year. (2) Heart failure with reduced ejection fraction: Code(s): I50.20 - Unspecified systolic (congestive) heart failure Plan: Continue Entresto. The goal is to not gain 5 lb in a week. Continue daily weights. (3) Paroxysmal atrial fibrillation: Code(s): I48.0 - Paroxysmal atrial fibrillation Plan: Continue amiodarone and chronic anticoagulation. The goal is heart rate control. Follow-up with Cardiology. Orders: Orders Vitamin D 25-OH Total 6 Months E55.9 - Vitamin D deficiency, unspecified XR DEXA axial skeleton Today N95.9 - Unspecified menopausal and perimenopausal disorder Lipid Panel 6 Months E78.5 - Hyperlipidemia, unspecified Comprehensive [place]. Panel Fast 6 Months I50.20 - Unspecified systolic (congestive) heart failure NT-proBNP 6 Months I50.20 - Unspecified systolic (congestive) heart failure Td State Immunization Today Z23 - Encounter for immunization Coding Level of Care Code Est Pt Prev Care >65y(83424) Diagnoses Physical exam Z00.00 Heart failure with reduced ejection fraction I50.20 Paroxysmal atrial fibrillation I48.0 Time Spent (min) 33
== END 2024-06-21 14:20 | disposition home or self-care (01) ==
PROVIDERS: PCP Internal Medicine; Visit Provider Internal Medicine
DX: Z00.00 Encounter for general adult medical examination without abnormal findings (principal); I50.20 Unspecified systolic (congestive) heart failure; I48.0 Paroxysmal atrial fibrillation; Z23 Encounter for immunization
CPT/HCPCS: 90471; 90714; 99397

== ENCOUNTER 2024-07-14 10:54 | Outpatient (REF) | payer MEDICARE, SELFPAY ==
--- NOTE | ~2024-07-14 | MM_ITS ---
EXAMINATION: BONE DENSITOMETRY CLINICAL INDICATION: Menopause. COMPARISON: Previous BD dated 01/24/2021 and baseline BD dated 04/26/2014. TECHNIQUE: Using a [employer] DXA System (software version: 13.1) manufactured by [employer], dual-energy x-ray absorptiometry was performed of the lumbar spine and left hip. The images are of good technical quality. Summary results are attached. FINDINGS: LEFT FEMUR, NECK: Current: BMD 0.682 g/cm2, Z-score -0.1, T-score -2.6, osteoporosis. Prior: BMD 0.693 g/cm2. Baseline: BMD 0.716 g/cm2. LEFT FEMUR, TOTAL: Current: BMD 0.674 g/cm2, Z-score -0.3, T-score -2.6, osteoporosis, 8.5% decrease from previous, 6.1% decrease from baseline (<5% change is not significant). Prior: BMD 0.737 g/cm2. Baseline: BMD 0.718 g/cm2. AP SPINE L1-L2 (excluding L3 and L4): The data of L1-L4 has been changed to exclude the L3 and L4 vertebral bodies, because at these levels may cause overestimation of lumbar spine density. Current: BMD 1.551 g/cm2, Z-score 5.0, T-score 3.2, normal, 27.2% increase from previous, 34.3% increase from baseline (<5% change is not significant). Prior: BMD 1.219 g/cm2. Baseline: BMD 1.155 g/cm2. IDENTIFIED RISK FACTORS: Early menopause, height loss, history of fracture (adult), hysterectomy, osteoporosis, secondary osteoporosis. HISTORY OF FRACTURE: Humerus, shoulder, wrist, other. MEDICATIONS: Calcium, vitamin D, bisphosphonate. MM/XR DEXA axial skeleton IMPRESSION: 1. DIAGNOSIS: Severe osteoporosis based on the lowest T-score value of -2.6 in the femur neck and total femur and history of fracture of humerus, shoulder, wrist applying World Health Organization criteria. 2. 10-YEAR FRACTURE RISK PREDICTION, FRAX: According to the guidelines, FRAX calculation should only be performed on patients in the osteopenia bone density category. Therefore, FRAX was not performed on this patient. 3. Treatment Recommendations: NOF guidelines recommend consideration for treatment in postmenopausal women and men age 50 and older presenting with the following: -A hip or vertebral (clinical or morphometric) fracture. -T-score less than or equal to -2.5 at the femoral neck or spine after appropriate evaluation to exclude secondary causes. -Low bone mass at the hip or spine and a 10-year fracture probability by FRAX of greater than or equal to 3% for hip fracture or greater than or equal to 20% for major osteoporotic fracture based on the [place] adapted WHO algorithm. 4. Other Recommendations: All treatment decisions require clinical judgment and consideration of individual patient factors, including patient preferences, comorbidities, previous drug use, risk factors not captured in the FRAX model (e.g. frailty, falls, vitamin D deficiency, increased bone turnover, interval significant decline in bone density) and possible under or overestimation of fracture risk by FRAX. Additional medical evaluation for secondary cause of low bone mineral density may be appropriate. FUTURE SCAN RECOMMENDATION: People with diagnosed cases of osteoporosis or at high risk for fracture should have regular bone mineral density tests. For patients eligible for Medicare, routine testing is allowed once every 2 years. The testing frequency can be increased to one year for patients who have rapidly progressing disease, those who are receiving or discontinuing medical therapy to restore bone mass, or have additional risk factors. Electronically signed by: Melvin Hawk MD 07/17/2024 08:35 AM EDT
== END 2024-07-14 10:55 | disposition home or self-care (01) ==
LOC: HO.MAMMO 10:54
PROVIDERS: PCP Internal Medicine; Visit Provider Internal Medicine
DX: Z13.820 Encounter for screening for osteoporosis (principal); Z78.0 Asymptomatic menopausal state
CPT/HCPCS: 77080

== ENCOUNTER → 2024-07-20 23:59 | Outpatient (BNV) | payer MEDICARE, SELFPAY ==
--- NOTE | 2024-07-31 17:30 | A.OFFVIS_ITS ---
Intake Visit Reasons: Remote device check- [employer] Allergies aspirin Allergy (Intermediate, Verified 06/21/24 13:46) Hives clindamycin Allergy (Intermediate, Verified 06/21/24 13:46) Diarrhea dipyridamole Allergy (Intermediate, Verified 06/21/24 13:46) Diarrhea doxycycline Allergy (Intermediate, Verified 06/21/24 13:46) Diarrhea enalapril Allergy (Intermediate, Verified 06/21/24 13:46) dry cough erythromycin base Allergy (Intermediate, Verified 06/21/24 13:46) Nausea, puffy face lansoprazole [Prevacid] Allergy (Intermediate, Verified 06/21/24 13:46) pruritus metronidazole Allergy (Intermediate, Verified 06/21/24 13:46) Diarrhea Penicillins [PENICILLINS] Allergy (Intermediate, Verified 06/21/24 13:46) hives Sulfa (Sulfonamide Antibiotics) [SULFA (SULFONAMIDE ANTIBIOTICS)] Allergy (Intermediate, Verified 06/21/24 13:46) Hives ticlopidine [TICLOPIDINE] Allergy (Intermediate, Verified 06/21/24 13:46) hives tramadol [TRAMADOL] Allergy (Intermediate, Verified 06/21/24 13:46) HIVES loratadine [LORATADINE] Allergy (Unknown, Verified 06/21/24 13:46) UNKNOWN levofloxacin Adverse Reaction (Intermediate, Verified 06/21/24 13:46) Diarrhea lisinopril [Zestril] Adverse Reaction (Intermediate, Verified 06/21/24 13:46) dry cough, chest pressure [facility] Medical History (Updated 07/17/24 @ 09:16 by Keeley Curtis MD) Joint pain Hand weakness Neuropathy Medicare annual wellness visit, initial Biventricular cardiac pacemaker in situ History of pacemaker Cardiac pacemaker in situ Heart failure with reduced ejection fraction Cardiomyopathy Hearing loss Osteoporosis Glaucoma GERD (gastroesophageal reflux disease) Paroxysmal atrial fibrillation Essential hypertension Pure hypercholesterolemia Surgical History Trigger finger, right middle finger History of removal of cyst History of bone graft Enchondroma of humerus History of basal cell carcinoma (BCC) excision History of lumbar laminectomy History of total ankle replacement History of cataract surgery History of breast biopsy S/P HAILEY (total abdominal hysterectomy) History of ankle surgery History of cholecystectomy History of appendectomy History of tonsillectomy Family History (Updated 06/21/24 @ 13:55 by Keeley Curtis MD) Father Myocardial infarction Mother Myocardial infarction Paternal Aunt Colon cancer Breast cancer Sister Myocardial infarction Social History Housing: Apartment Alcohol intake: never Patient Tobacco Use Status: Never used Tobacco e-Cigarette/Vaping Use: Never Used Second Hand Smoke Exposure: No service: No Current occupational status: retired Cognitive needs: Yes Hearing needs: Yes Vision needs: Yes Office Procedures Cardiac Device Check Cardiac Device Check Details: Remote pacemaker report generated 07/20/2024. Pacemaker function is adequate. Bi V pacing 97% of time. I was requested to read this study on 07/31/2024 [id number] Cardiac Device Interrogation, pacemaker Procedure code (CPT) selection complete Assessment & Plan Assessment & Plan (1) Biventricular cardiac pacemaker in situ: Code(s): Z95.0 - Presence of cardiac pacemaker Category: Medical Plan: See above Coding Level of Care Code Procedure Only Diagnoses Biventricular cardiac pacemaker in situ Z95.0 CPT Codes Cardiac Device Check - Cardiac Device 12: [id number] Cardiac Device Interrogation, pacemaker ([id number])
== END ==
PROVIDERS: PCP Internal Medicine; Visit Provider Internal Medicine Cardiovascular Disease
DX: Z45.018 Encounter for adjustment and management of other part of cardiac pacemaker (principal)
CPT/HCPCS: 93294

== ENCOUNTER → 2024-07-20 23:59 | Outpatient (BNV) | payer MEDICARE, SELFPAY ==
--- NOTE | 2024-07-31 17:31 | MHC.OFFVIS ---
Intake Visit Reasons: Remote HF monitoring- [employer] Allergies aspirin Allergy (Intermediate, Verified 06/21/24 13:46) Hives clindamycin Allergy (Intermediate, Verified 06/21/24 13:46) Diarrhea dipyridamole Allergy (Intermediate, Verified 06/21/24 13:46) Diarrhea doxycycline Allergy (Intermediate, Verified 06/21/24 13:46) Diarrhea enalapril Allergy (Intermediate, Verified 06/21/24 13:46) dry cough erythromycin base Allergy (Intermediate, Verified 06/21/24 13:46) Nausea, puffy face lansoprazole [Prevacid] Allergy (Intermediate, Verified 06/21/24 13:46) pruritus metronidazole Allergy (Intermediate, Verified 06/21/24 13:46) Diarrhea Penicillins [PENICILLINS] Allergy (Intermediate, Verified 06/21/24 13:46) hives Sulfa (Sulfonamide Antibiotics) [SULFA (SULFONAMIDE ANTIBIOTICS)] Allergy (Intermediate, Verified 06/21/24 13:46) Hives ticlopidine [TICLOPIDINE] Allergy (Intermediate, Verified 06/21/24 13:46) hives tramadol [TRAMADOL] Allergy (Intermediate, Verified 06/21/24 13:46) HIVES loratadine [LORATADINE] Allergy (Unknown, Verified 06/21/24 13:46) UNKNOWN levofloxacin Adverse Reaction (Intermediate, Verified 06/21/24 13:46) Diarrhea lisinopril [Zestril] Adverse Reaction (Intermediate, Verified 06/21/24 13:46) dry cough, chest pressure [facility] Medical History (Updated 07/17/24 @ 09:16 by Keeley Curtis MD) Joint pain Hand weakness Neuropathy Medicare annual wellness visit, initial Biventricular cardiac pacemaker in situ History of pacemaker Cardiac pacemaker in situ Heart failure with reduced ejection fraction Cardiomyopathy Hearing loss Osteoporosis Glaucoma GERD (gastroesophageal reflux disease) Paroxysmal atrial fibrillation Essential hypertension Pure hypercholesterolemia Surgical History Trigger finger, right middle finger History of removal of cyst History of bone graft Enchondroma of humerus History of basal cell carcinoma (BCC) excision History of lumbar laminectomy History of total ankle replacement History of cataract surgery History of breast biopsy S/P HAILEY (total abdominal hysterectomy) History of ankle surgery History of cholecystectomy History of appendectomy History of tonsillectomy Family History (Updated 06/21/24 @ 13:55 by Keeley Curtis MD) Father Myocardial infarction Mother Myocardial infarction Paternal Aunt Colon cancer Breast cancer Sister Myocardial infarction Social History Housing: Apartment Alcohol intake: never Patient Tobacco Use Status: Never used Tobacco e-Cigarette/Vaping Use: Never Used Second Hand Smoke Exposure: No service: No Current occupational status: retired Cognitive needs: Yes Hearing needs: Yes Vision needs: Yes Office Procedures Cardiac Device Check Cardiac Device Check Details: Remote heart failure report generated 07/20/2024. Heart failure parameters are stable. I was requested to read this study on 07/31/2024 [id number] Cardiac Device Interrogation, cardio physiologic monitor Procedure code (CPT) selection complete Assessment & Plan Assessment & Plan (1) Biventricular cardiac pacemaker in situ: Code(s): Z95.0 - Presence of cardiac pacemaker Category: Medical Plan: See above Coding Level of Care Code Procedure Only Diagnoses Biventricular cardiac pacemaker in situ Z95.0 CPT Codes Cardiac Device Check - Cardiac Device 15: [id number] Cardiac Device Interrogation, cardio physiologic monitor ([id number])
== END ==
PROVIDERS: PCP Internal Medicine; Visit Provider Internal Medicine Cardiovascular Disease
DX: Z45.018 Encounter for adjustment and management of other part of cardiac pacemaker (principal)
CPT/HCPCS: 93297

== ENCOUNTER → 2024-08-19 23:59 | Outpatient (BNV) | payer MEDICARE, SELFPAY ==
--- NOTE | 2024-08-22 11:41 | MHC.OFFVIS ---
Intake Visit Reasons: Remote HF monitoring- Medtr[employer] Allergies aspirin Allergy (Intermediate, Verified 06/21/24 13:46) Hives clindamycin Allergy (Intermediate, Verified 06/21/24 13:46) Diarrhea dipyridamole Allergy (Intermediate, Verified 06/21/24 13:46) Diarrhea doxycycline Allergy (Intermediate, Verified 06/21/24 13:46) Diarrhea enalapril Allergy (Intermediate, Verified 06/21/24 13:46) dry cough erythromycin base Allergy (Intermediate, Verified 06/21/24 13:46) Nausea, puffy face lansoprazole [Prevacid] Allergy (Intermediate, Verified 06/21/24 13:46) pruritus metronidazole Allergy (Intermediate, Verified 06/21/24 13:46) Diarrhea Penicillins [PENICILLINS] Allergy (Intermediate, Verified 06/21/24 13:46) hives Sulfa (Sulfonamide Antibiotics) [SULFA (SULFONAMIDE ANTIBIOTICS)] Allergy (Intermediate, Verified 06/21/24 13:46) Hives ticlopidine [TICLOPIDINE] Allergy (Intermediate, Verified 06/21/24 13:46) hives tramadol [TRAMADOL] Allergy (Intermediate, Verified 06/21/24 13:46) HIVES loratadine [LORATADINE] Allergy (Unknown, Verified 06/21/24 13:46) UNKNOWN levofloxacin Adverse Reaction (Intermediate, Verified 06/21/24 13:46) Diarrhea lisinopril [Zestril] Adverse Reaction (Intermediate, Verified 06/21/24 13:46) dry cough, chest pressure [facility] Medical History (Updated 07/17/24 @ 09:16 by Keeley Curtis MD) Joint pain Hand weakness Neuropathy Medicare annual wellness visit, initial Biventricular cardiac pacemaker in situ History of pacemaker Cardiac pacemaker in situ Heart failure with reduced ejection fraction Cardiomyopathy Hearing loss Osteoporosis Glaucoma GERD (gastroesophageal reflux disease) Paroxysmal atrial fibrillation Essential hypertension Pure hypercholesterolemia Surgical History Trigger finger, right middle finger History of removal of cyst History of bone graft Enchondroma of humerus History of basal cell carcinoma (BCC) excision History of lumbar laminectomy History of total ankle replacement History of cataract surgery History of breast biopsy S/P HAILEY (total abdominal hysterectomy) History of ankle surgery History of cholecystectomy History of appendectomy History of tonsillectomy Family History (Updated 06/21/24 @ 13:55 by Keeley Curtis MD) Father Myocardial infarction Mother Myocardial infarction Paternal Aunt Colon cancer Breast cancer Sister Myocardial infarction Social History Housing: Apartment Alcohol intake: never Patient Tobacco Use Status: Never used Tobacco e-Cigarette/Vaping Use: Never Used Second Hand Smoke Exposure: No service: No Current occupational status: retired Cognitive needs: Yes Hearing needs: Yes Vision needs: Yes Office Procedures Cardiac Device Check Cardiac Device Check Details: Remote heart failure report generated 08/11/2024. Heart failure parameters are stable [id number] Cardiac Device Interrogation, cardio physiologic monitor Procedure code (CPT) selection complete Assessment & Plan Assessment & Plan (1) Heart failure with reduced ejection fraction: Code(s): I50.20 - Unspecified systolic (congestive) heart failure Category: Medical Plan: See above Coding Level of Care Code Procedure Only Diagnoses Heart failure with reduced ejection fraction I50.20 CPT Codes Cardiac Device Check - Cardiac Device 15: [id number] Cardiac Device Interrogation, cardio physiologic monitor ([id number])
== END ==
PROVIDERS: PCP Internal Medicine; Visit Provider Internal Medicine Cardiovascular Disease
DX: I50.20 Unspecified systolic (congestive) heart failure (principal); Z95.0 Presence of cardiac pacemaker
CPT/HCPCS: 93297

== ENCOUNTER 2024-09-25 13:28 | Outpatient (REF) | payer MEDICARE, SELFPAY ==
--- NOTE | ~2024-09-25 | XR_ITS ---
EXAMINATION: XR CHEST CLINICAL INFORMATION: Paroxysmal atrial fibrillation COMPARISON: 03/11/23 TECHNIQUE: 2 views of the chest were obtained. FINDINGS: Heart size normal. 3-lead right chest wall pacemaker is present unchanged. The leads are all intact and in good position. No evidence of CHF. No infiltrates, pleural effusions or lung masses. Degenerative changes are present in the spine with biconvex scoliosis. Sclerotic changes in the proximal left humerus are unchanged. XR/XR chest 2V IMPRESSION: No acute intrathoracic disease. Electronically signed by: Arash Finn MD 09/25/2024 04:26 PM SHAHZAD BETANCOURT
[2024-09-25 15:22] LABS: Hematocrit 46.3 % (37.0-47.0); Mean Corpuscular HGB Conc 32.4 g/dl (31.0-35.0); Mean Corpuscular Hemoglobin 30.9 pg (27.0-33.0); Mean Corpuscular Volume 95.3 fL (80.0-98.0); Mean Platelet Volume 11.1 fL (9.4-12.3); Platelet Count 158 X10*3/uL (160-400); Red Blood Count 4.86 X10*6/uL (4.20-5.50); Red Cell Distribution Width 13.3 % (11.0-16.0); White Blood Count 7.4 X10*3/uL (4.8-10.8)
[2024-09-25 15:49] LABS: B Type Natriuretic Peptide 179 pg/mL (<100)
[2024-09-25 16:31] LABS: Alanine Aminotransferase 16 U/L (0-31); Albumin Level 4.3 g/dL (3.5-5.0); Anion Gap 17 (12-20); Aspartate Amino Transferase 41 U/L (5-31); Bilirubin Direct 0.2 mg/dL (0.0-0.5); Bilirubin Total 0.5 mg/dL (0.0-1.0); Blood Urea Nitrogen 24 mg/dL (9-16); Calcium 9.9 mg/dL (8.4-10.2); Carbon Dioxide 23 mmol/L (22-29); Chloride 106 mmol/L (96-108); Estimated Glomerular Filt Rate 43; Glucose Random 83 mg/dL (60-115); Potassium 4.5 mmol/L (3.3-5.1); Sodium 141 mmol/L (135-145); TSH reflex Free T4 1.57 uIU/mL (0.32-4.0); Total Protein 7.3 g/dL (6.5-8.0)
[2024-09-25 17:35] LABS: Alkaline Phosphatase 66 U/L (39-117)
== END 2024-09-25 13:29 | disposition home or self-care (01) ==
LOC: HO.XRAY 13:28
PROVIDERS: PCP Internal Medicine; Visit Provider Internal Medicine Cardiovascular Disease
DX: I50.20 Unspecified systolic (congestive) heart failure (principal); I48.0 Paroxysmal atrial fibrillation; R53.83 Other fatigue; R06.02 Shortness of breath; R19.7 Diarrhea, unspecified; R11.0 Nausea; Z95.0 Presence of cardiac pacemaker
CPT/HCPCS: 36415; 71046; 80048; 80076; 83880; 84443; 85027; 93005; 99212

== ENCOUNTER 2024-09-25 13:28 | Outpatient (AMB) | payer MEDICARE, SELFPAY ==
[2024-09-25 13:41] VITALS: BP 114/64; PULSE 68; BMI 27.8
--- NOTE | 2024-09-25 13:41 | A.OFFVIS_ITS ---
Vital Signs 09/25/24 13:41 Height 5 ft 2.5 in Weight 154 lb 5.177 oz BMI 27.8 BP 114/64 Blood Pressure Location Lt brachial Position Sitting Pulse 68 Intake Visit Reasons: 6 mth fu w/ Medtronic Intake Note: 6 month follow-up with [employer] check c/o increased fatigue with sob, nausa, and diarrhea Allocations Clerk Required: No Allergies aspirin Allergy (Intermediate, Verified 06/21/24 13:46) Hives clindamycin Allergy (Intermediate, Verified 06/21/24 13:46) Diarrhea dipyridamole Allergy (Intermediate, Verified 06/21/24 13:46) Diarrhea doxycycline Allergy (Intermediate, Verified 06/21/24 13:46) Diarrhea enalapril Allergy (Intermediate, Verified 06/21/24 13:46) dry cough erythromycin base Allergy (Intermediate, Verified 06/21/24 13:46) Nausea, puffy face lansoprazole [Prevacid] Allergy (Intermediate, Verified 06/21/24 13:46) pruritus metronidazole Allergy (Intermediate, Verified 06/21/24 13:46) Diarrhea Penicillins [PENICILLINS] Allergy (Intermediate, Verified 06/21/24 13:46) hives Sulfa (Sulfonamide Antibiotics) [SULFA (SULFONAMIDE ANTIBIOTICS)] Allergy (Intermediate, Verified 06/21/24 13:46) Hives ticlopidine [TICLOPIDINE] Allergy (Intermediate, Verified 06/21/24 13:46) hives tramadol [TRAMADOL] Allergy (Intermediate, Verified 06/21/24 13:46) HIVES loratadine [LORATADINE] Allergy (Unknown, Verified 06/21/24 13:46) UNKNOWN levofloxacin Adverse Reaction (Intermediate, Verified 06/21/24 13:46) Diarrhea lisinopril [Zestril] Adverse Reaction (Intermediate, Verified 06/21/24 13:46) dry cough, chest pressure Medication List - Last Reconciled 09/25/24 by Keon Elam MD acetaminophen ER 650 mg PO .AFTER LUNCH alendronate 70 mg PO QWEEK amiodarone 100 mg (1/2 x 200 mg) PO DAILY 90 days apixaban (Eliquis) 5 mg PO BID 90 days atenolol 50 mg PO DAILY 90 days calcium carbonate-vit D3-min 600 mg calcium- 400 unit 1 tab PO BID dicyclomine 20 mg PO TID 90 days fexofenadine (Eneida Allergy) 180 mg PO DAILY latanoprost 0.005% drradha ophthalmic (eye) levocetirizine 5 mg PO DAILY magnesium oxide 400 mg PO DAILY rosuvastatin 10 mg PO DAILY 90 days sacubitril-valsartan 24-26 mg (Entresto) 1 tab PO BID 90 days spironolactone 25 mg PO DAILY 90 days triamcinolone acetonide (Nasacort) 1 spray intranasal DAILY triamcinolone acetonide 0.1% appl topical BID HPI Comments Details: Deanna comes for follow-up. He said over the last 3 weeks she has not been feeling well. She has been getting more exertional shortness of breath as well as fatigue. She also complains of shortness of breath when she gets into the bed but then she is able to breathe once she is laying on her side. She denies any clear episodes of paroxysmal neck nocturnal dyspnea. Denies any abdominal distension or leg edema. She has been taking all her medications. No recent changes in his medications or her diet with no excessive salt intake. She said that she had some form viral syndrome she got tested for COVID but this was negative. She also complains of diarrhea and change in her appetite. Denies any palpitations, lightheadedness, syncope. No exertional chest pain. No prolonged palpitation irregular heartbeat. No obvious bleeding or neurologic events. [facility] Medical History Joint pain Hand weakness Neuropathy Medicare annual wellness visit, initial Biventricular cardiac pacemaker in situ History of pacemaker Cardiac pacemaker in situ Heart failure with reduced ejection fraction Cardiomyopathy Hearing loss Osteoporosis Glaucoma GERD (gastroesophageal reflux disease) Paroxysmal atrial fibrillation Essential hypertension Pure hypercholesterolemia Surgical History Trigger finger, right middle finger History of removal of cyst History of bone graft Enchondroma of humerus History of basal cell carcinoma (BCC) excision History of lumbar laminectomy History of total ankle replacement History of cataract surgery History of breast biopsy S/P HAILEY (total abdominal hysterectomy) History of ankle surgery History of cholecystectomy History of appendectomy History of tonsillectomy Family History Father Myocardial infarction Mother Myocardial infarction Paternal Aunt Colon cancer Breast cancer Sister Myocardial infarction Social History Housing: Apartment Alcohol intake: never Patient Tobacco Use Status: Never used Tobacco e-Cigarette/Vaping Use: Never Used Second Hand Smoke Exposure: No service: No Current occupational status: retired Cognitive needs: Yes Hearing needs: Yes Vision needs: Yes Review of Systems Const Denies chills, Denies fatigue, Denies fever(s), Denies frequent falls, Denies weakness, Denies weight gain and Denies weight loss ENT Denies dizziness Card Denies chest pain, Denies leg edema, Denies lightheadedness, Denies palpitations, Denies dyspnea, Denies dyspnea on exertion, Denies orthopnea and Denies other (loss of consciousness) Resp Denies cough, Denies dyspnea and Denies dyspnea on exertion GI Denies hematochezia and Denies change in stool character Musc Denies abnormal gait, Denies muscle weakness, Denies numbness, Denies radiating pain into limb and Denies tingling Neuro Denies abnormal gait, Denies dizziness, Denies frequent falls, Denies numbness, Denies tingling and Denies weakness Endo Denies fatigue and Denies palpitations Physical Exam Vital Signs: Last Vital Signs Pulse 68 09/25/24 13:41 BP 114/64 09/25/24 13:41 BMI result Body Mass Index 27.8 Const General: cooperative, comfortable, no acute distress, alert, awake and well groomed Nutritional Appearance: average body habitus Orientation/consciousness: patient oriented x3 Limitations: ambulation with walker Neck Neck: Yes trachea midline, Yes supple and Yes no JVD Resp Effort & Inspection: normal respiratory effort Auscultation: clear to auscultation bilaterally Cardio Jugular venous distension: no JVD Rate: regular rate Rhythm: regular rhythm Heart sounds: S1 normal heart sound present and S2 normal heart sound present GI Auscultation: normal bowel sounds Skin General skin exam: no rashes or lesions noted Neuro General: patient oriented x3 and no focal motor deficits Extrem General: Yes no clubbing, cyanosis or edema Psych Appearance: grossly normal Office Procedures Cardiac Device Check Cardiac Device Check Details: Biventricular Medtronic pacemaker in place. Programmed in DDDR at 60 beats per minute. Biventricular pacing 96.3% of time. Frequent intermittent PVCs noted. Atrial and ventricular sensing are adequate and stable. Atrial pacing thresholds adequate and reprogrammed to enhance battery life. RV pacing thresholds adequate and reprogrammed to enhance battery life. LV pacing thresholds adequate and reprogrammed to enhance safety. Pacing lead impedance is stable. Cardiac heart failure thoracic impedance is within normal limits. Battery life is excellent. No episodes of atrial fibrillation noted. 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 She is having increasing symptoms of shortness of breath over the last 3 weeks without any overt signs of fluid overload or congestive heart failure. Even cardiac device trevino as no evidence of increased thoracic impedance suggestive of heart failure. Will suggest to pursue BNP and BNP as well as CBC to rule out any other obvious causes for her shortness of breath. This will direct further therapy. Will also obtain a chest x-ray to evaluate for any out pulmonary issues that might be explaining her symptoms of shortness of breath. Will further pursue treatment based on the finding of these test results. Otherwise continue current neurohormonal modulation with Entresto, spironolactone as well as atenolol therapy. Signs and symptoms of heart failure were discussed. Daily weight monitoring avoidance of salt loading was discussed. Continue rhythm control approach, see below. (2) Paroxysmal atrial fibrillation: Code(s): I48.0 - Paroxysmal atrial fibrillation Category: Medical Plan: Paroxysmal atrial fibrillation which has done well with rhythm control approach with a long time. She has been on long-term low-dose amiodarone therapy. Advise chest x-ray as well as liver panel TSH to evaluate for amiodarone toxicity. Continue to pursue rhythm control approach. Continue full oral anticoagulation, currently on Eliquis 5 mg b.i.d.. Quarterly to semi annual renal function test should be pursued. (3) Biventricular cardiac pacemaker in situ: Code(s): Z95.0 - Presence of cardiac pacemaker Category: Medical Plan: Biventricular pacemaker in place, with improved LV ejection fraction since LV pacing. However LV function has not normalized. Continue monitor remotely every 3 months. Will follow up in the clinic in 6 months time. Follow up in the clinic in 6 months time, sooner p.r.n.. Thank you for allowing me to partake in her care Orders: Orders Basic Metabolic Panel Today I50.20 - Unspecified systolic (congestive) heart failure B Type Natriuretic Peptide Today I50.20 - Unspecified systolic (congestive) heart failure Complete Blood Count no Diff Today I50.20 - Unspecified systolic (congestive) heart failure TSH reflex Free T4 Today I48.0 - Paroxysmal atrial fibrillation Liver Panel Today I48.0 - Paroxysmal atrial fibrillation XR chest 2V Today I48.0 - Paroxysmal atrial fibrillation Coding Level of Care Code Est Pt Level 4 (67053) Complex EM visit Add On G2211 Diagnoses Heart failure with reduced ejection fraction I50.20 Paroxysmal atrial fibrillation I48.0 Biventricular cardiac pacemaker in situ Z95.0 CPT Codes Cardiac Device Check - Cardiac Device 3: [id number] Cardiac Device Check, multi lead pacemaker ([id number]) EKG - CPT: 29931-[id number], Complete ([id number])
== END 2024-09-25 14:14 | disposition home or self-care (01) ==
LOC: HO.HCS 13:39
PROVIDERS: PCP Internal Medicine; Visit Provider Internal Medicine Cardiovascular Disease
DX: I50.20 Unspecified systolic (congestive) heart failure (principal); I48.0 Paroxysmal atrial fibrillation; Z95.0 Presence of cardiac pacemaker
CPT/HCPCS: 93010; 93281; 99214; G2211

== ENCOUNTER 2024-11-20 12:51 | Outpatient (AMB) | payer MEDICARE, SELFPAY ==
--- NOTE | 2024-11-20 12:55 | MHC.OFFVIS ---
Vital Signs 11/20/24 13:00 Height 5 ft 2.5 in Weight 158 lb 15.253 oz BMI 28.6 BP 122/80 Blood Pressure Location Lt brachial Position Sitting Pulse 77 Pulse Source Pulse Oximeter Pulse Oximetry (%) 96 Oxygen Delivery Method Room Air Intake Visit Reasons: Osteoporosis Intake Note: Patient presents for Osteoporosis. Allergies aspirin Allergy (Intermediate, Verified 11/20/24 12:59) Hives clindamycin Allergy (Intermediate, Verified 11/20/24 12:59) Diarrhea dipyridamole Allergy (Intermediate, Verified 11/20/24 12:59) Diarrhea doxycycline Allergy (Intermediate, Verified 11/20/24 12:59) Diarrhea enalapril Allergy (Intermediate, Verified 11/20/24 12:59) dry cough erythromycin base Allergy (Intermediate, Verified 11/20/24 12:59) Nausea, puffy face lansoprazole [Prevacid] Allergy (Intermediate, Verified 11/20/24 12:59) pruritus metronidazole Allergy (Intermediate, Verified 11/20/24 12:59) Diarrhea Penicillins [PENICILLINS] Allergy (Intermediate, Verified 11/20/24 12:59) hives Sulfa (Sulfonamide Antibiotics) [SULFA (SULFONAMIDE ANTIBIOTICS)] Allergy (Intermediate, Verified 11/20/24 12:59) Hives ticlopidine [TICLOPIDINE] Allergy (Intermediate, Verified 11/20/24 12:59) hives tramadol [TRAMADOL] Allergy (Intermediate, Verified 11/20/24 12:59) HIVES loratadine [LORATADINE] Allergy (Unknown, Verified 11/20/24 12:59) UNKNOWN levofloxacin Adverse Reaction (Intermediate, Verified 11/20/24 12:59) Diarrhea lisinopril [Zestril] Adverse Reaction (Intermediate, Verified 11/20/24 12:59) dry cough, chest pressure Medication List - Last Reconciled 11/20/24 by Celine Beaver MD acetaminophen ER 650 mg PO .AFTER LUNCH amiodarone 100 mg (1/2 x 200 mg) PO DAILY 90 days apixaban (Eliquis) 5 mg PO BID 90 days atenolol 50 mg PO DAILY calcium carbonate-vit D3-min 600 mg-10 mcg (400 unit) 1 tab PO BID dicyclomine 20 mg PO TID 90 days fexofenadine (Eneida Allergy) 180 mg PO DAILY latanoprost 0.005% drps ophthalmic (eye) levocetirizine 5 mg PO DAILY magnesium oxide 400 mg PO DAILY rosuvastatin 10 mg PO DAILY sacubitril-valsartan 24-26 mg (Entresto) 1 tab PO BID 90 days spironolactone 25 mg PO DAILY 90 days triamcinolone acetonide (Nasacort) 1 spray intranasal DAILY triamcinolone acetonide 0.1% appl topical BID HPI Comments Details: This is an 88-year-old female with osteoporosis who presents for follow-up. Her repeat bone density scan 06/2024 showed worsening bone density at the hip. Patient stated that in the 80s she broke her left humerus, left tibia and left ankle. She stated that this was from an enchondroma and she had a pathological fracture. She stated that she had a fall last year, on her back, her back was very painful , it took time to resolve. She walks with a walker. She has been on alendronate regularly since about 2019. [facility] Medical History Joint pain Hand weakness Neuropathy Medicare annual wellness visit, initial Biventricular cardiac pacemaker in situ History of pacemaker Cardiac pacemaker in situ Heart failure with reduced ejection fraction Cardiomyopathy Hearing loss Osteoporosis Glaucoma GERD (gastroesophageal reflux disease) Paroxysmal atrial fibrillation Essential hypertension Pure hypercholesterolemia Surgical History Trigger finger, right middle finger History of removal of cyst History of bone graft Enchondroma of humerus History of basal cell carcinoma (BCC) excision History of lumbar laminectomy History of total ankle replacement History of cataract surgery History of breast biopsy S/P HAILEY (total abdominal hysterectomy) History of ankle surgery History of cholecystectomy History of appendectomy History of tonsillectomy Family History Father Myocardial infarction Mother Myocardial infarction Paternal Aunt Colon cancer Breast cancer Sister Myocardial infarction Social History Housing: Apartment Alcohol intake: never Patient Tobacco Use Status: Never used Tobacco e-Cigarette/Vaping Use: Never Used Second Hand Smoke Exposure: No service: No Current occupational status: retired Cognitive needs: Yes Hearing needs: Yes Vision needs: Yes Review of Systems Const All systems reviewed & are unremarkable except as noted in HPI and below Physical Exam Vital Signs: Last Vital Signs Pulse 77 11/20/24 13:00 BP 122/80 11/20/24 13:00 Pulse Ox 96 11/20/24 13:00 Oxygen Delivery Method Room Air 11/20/24 13:00 BMI result Body Mass Index 28.6 Const General: cooperative, healthy appearing and comfortable Nutritional Appearance: overweight Orientation/consciousness: patient oriented x3 Limitations: ambulation with walker HEENT Head: Yes normocephalic and Yes atraumatic Resp Effort & Inspection: normal respiratory effort and able to speak in complete sentences Auscultation: clear to auscultation bilaterally Skin General skin exam: no rashes or lesions noted Neuro General: patient oriented x3 Results Reviewed Results Reviewed: Ordering Physician: Keeley Roe MD Results: Date of Service: 07/14/24 Follow Up: Procedure(s): XR DEXA axial skeleton Accession Number(s): [id number] cc: Keeley Roe MD~ EXAMINATION: BONE DENSITOMETRY CLINICAL INDICATION: Menopause. COMPARISON: Previous BD dated 01/24/2021 and baseline BD dated 04/26/2014. TECHNIQUE: Using a [employer] DXA System (software version: 13.1) manufactured by [employer], dual-energy x-ray absorptiometry was performed of the lumbar spine and left hip. The images are of good technical quality. Summary results are attached. FINDINGS: LEFT FEMUR, NECK: Current: BMD 0.682 g/cm2, Z-score -0.1, T-score -2.6, osteoporosis. Prior: BMD 0.693 g/cm2. Baseline: BMD 0.716 g/cm2. LEFT FEMUR, TOTAL: Current: BMD 0.674 g/cm2, Z-score -0.3, T-score -2.6, osteoporosis, 8.5% decrease from previous, 6.1% decrease from baseline (<5% change is not significant). Prior: BMD 0.737 g/cm2. Baseline: BMD 0.718 g/cm2. AP SPINE L1-L2 (excluding L3 and L4): The data of L1-L4 has been changed to exclude the L3 and L4 vertebral bodies, because at these levels may cause overestimation of lumbar spine density. Current: BMD 1.551 g/cm2, Z-score 5.0, T-score 3.2, normal, 27.2% increase from previous, 34.3% increase from baseline (<5% change is not significant). Prior: BMD 1.219 g/cm2. Baseline: BMD 1.155 g/cm2. IDENTIFIED RISK FACTORS: Early menopause, height loss, history of fracture (adult), hysterectomy, osteoporosis, secondary osteoporosis. HISTORY OF FRACTURE: Humerus, shoulder, wrist, other. MEDICATIONS: Calcium, vitamin D, bisphosphonate. MM/XR DEXA axial skeleton IMPRESSION: 1. DIAGNOSIS: Severe osteoporosis based on the lowest T-score value of -2.6 in the femur neck and total femur and history of fracture of humerus, shoulder, wrist applying World Health Organization criteria. Assessment & Plan Assessment & Plan (1) Osteoporosis: Comment: Alendronate since 2019 Code(s): M81.0 - Age-related osteoporosis without current pathological fracture Category: Medical Qualifiers: Osteoporosis type: age-related Presence of current pathological fracture: without current pathological fracture Qualified Code(s): M81.0 - Age-related osteoporosis without current pathological fracture Plan: This is an 88-year-old female who presents for evaluation of osteoporosis. Patient has been on alendronate since 2019. Unfortunately her bone density at the hip is worsening, she has history of multiple fractures. Needs a more potent agent. Discussed risks and benefits of Romosuzumab. I am aware of patient's history of cardiomyopathy and her pacemaker. We discussed the black box warning associated with Romosuzumab regarding the increased risk of cardiovascular events. This was discussed thoroughly with patient. I think in her case, the benefit of potentially preventing a hip fracture outweighs its potential risks. Patient agreed to proceed. Will start prior authorization for Romosuzumab Discontinue alendronate Vitamin-D levels are adequate. Continue current vitamin-D level supplementation I provided patient with a printout of some weight-bearing exercises to do for osteoporosis Follow-up in 3 months Plan I spent 25 minutes reviewing patient's chart, evaluating patient, counseling patient and documenting in the chart Coding Level of Care Code Est Pt Level 3 (74780) Diagnoses Age-related osteoporosis without current pathological fracture M81.0 Osteoporosis type: age-related Presence of current pathological fracture: without current pathological fracture
[2024-11-20 13:00] VITALS: BP 122/80; PULSE 77; O2SAT 96; BMI 28.6
== END 2024-11-20 13:36 | disposition home or self-care (01) ==
PROVIDERS: PCP Internal Medicine; Visit Provider Student in an Organized Health Care Education/Training Program
DX: M81.0 Age-related osteoporosis without current pathological fracture (principal)
CPT/HCPCS: 99213